=== PATIENT | female | born 2005 | race Caucasian/White ===

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

== ENCOUNTER 2024-07-21 09:02 | Emergency (ER) | payer OTHER, SELFPAY ==
[2024-07-21 09:08] VITALS: BP 120/62; PULSE 63; RESP 18; TEMP 36.3; O2SAT 100
--- NOTE | 2024-07-21 09:19 | ED.FEMALEGU ---
HPI - Female Genitourinary General Chief complaint: Urogenital-Female Stated complaint: uti Time Seen by Provider: 07/21/24 09:14 History of Present Illness HPI Narrative: Patient is a 19-year-old female who presents ER with dysuria. Began this morning around 7:00 a.m.. Associated with urinary frequency and suprapubic pressure /cramping. Has history of UTI. No recent antibiotics. No fevers or chills. Related Data Home Medications Medication Instructions Recorded Confirmed melatonin 1 mg chewable tablet mg PO 06/11/21 norethindrone 1 mg-ethinyl tablet 06/11/21 estradiol 20 mcg (21)-iron 75 mg (7) tablet (Sammie Fe 09/24 ()) potassium citrate 10 mEq (1,080 meq PO 06/11/21 mg) tablet,extended release sertraline 50 mg tablet mg 06/11/21 Allergies Allergy/AdvReac Type Severity Reaction Status Date / Time haloperidol [From Haldol] AdvReac Jittery Verified 07/21/24 09:15 Review of Systems Review of Systems: All systems reviewed & are unremarkable except as noted in HPI and below Constitutional: Constitutional: Reports no additional constitutional complaints Gastrointestinal: Gastrointestinal: Reports no additional gastrointestinal complaints Genitourinary: Genitourinary: Denies abnormal vaginal bleeding, Reports nocturia, Reports dysuria, Denies flank pain and Denies vaginal discharge PMFSH Past Medical History Medical History Anxiety Cystinuria Depression Kyphosis Renal stone Sleeping difficulty Family History Family History Other No acute medical problems Social History Social History (Updated 11/04/23 @ 00:31 by Randi Alexander MD) Smoking status: Never smoker Other substance usage details: Denies marijuana use Living arrangements: with family Occupation/Education: student Additional occupation/education comments: in nursing school Exam Narrative: GENERAL: Well-appearing, well-nourished, and in no acute distress. HEAD: Normocephalic, atraumatic. ENT: Mucous membranes moist. CHEST: Clear to auscultation. No respiratory distress. HEART: Regular rate and rhythm. Normal peripheral pulses. ABDOMEN: Soft, nontender, nondistended, no CVA tenderness. NEURO: Alert and oriented x3. PSYCH: Normal mood and affect. Course Course Emergency Course: Discussed UA. D/c with cephalexin. Vital Signs Vital signs: Vital Signs Temperature 97.4 F L 07/21/24 09:08 Pulse Rate 63 07/21/24 09:08 Respiratory Rate 18 07/21/24 09:08 Blood Pressure 120/62 07/21/24 09:08 Pulse Oximetry 100 07/21/24 09:08 Temperature 97.4 F L 07/21/24 09:08 Pulse Rate 63 07/21/24 09:08 Respiratory Rate 18 07/21/24 09:08 Blood Pressure 120/62 07/21/24 09:08 Pulse Oximetry 100 07/21/24 09:08 MDM - Female Genitourinary Lab Data Labs: Lab Results 07/21/24 Range/Units 09:32 Urine Color Yellow (Yellow) Urine Appearance Clear (Clear) Urine pH 7.5 (5.0-9.0) Ur Specific [place] 1.023 (1.001-1.035) Urine Protein Negative (Negative) mg/dL Urine Glucose (UA) Negative (Negative) mg/dL Urine Ketones Negative (Negative) mg/dL Ur Blood (Man) Negative (Negative) Urine Nitrate Negative (Negative) Urine Bilirubin Negative (Negative) Urine Urobilinogen 1.0 (<2.0) mg/dL Leukocyte Esterase Rfl 1+ H (Negative) DECLAN/UL Urine RBC 0-2 (0-2) /hpf Urine WBC 11-20 H (0-3) /hpf Ur Squamous Epith Cells Few (Few) /hpf Urine Bacteria Rare /hpf Urine Casts 0-2 Discharge Plan Discharge Clinical Impression: Urinary tract infection Patient Disposition: Home, Self-Care Condition: Stable Instructions: Antibiotic Form, Urinary Tract Infection in Women (ED) Additional Instructions: You should return to the emergency department if you develop severe nausea and vomiting and are unable to keep liquids down, if you develop severe back/flank or stomach pain, or if your symptoms are not clearly improving at home. Prescriptions: New cephalexin 500 mg capsule 500 mg PO Q12H Qty: 10 0RF No Action norethindrone-e.estradiol-iron [Sammie Fe 09/24 (28)] 1 mg-20 mcg (21)/75 mg (7) tablet potassium citrate 10 mEq (1,080 mg) tablet extended release PO sertraline 50 mg tablet melatonin 1 mg Tablet,Chewable PO ibuprofen 800 mg tablet 800 mg PO TID PRN (Reason: pain) Qty: 20 0RF amoxicillin-pot clavulanate 875-125 mg tablet 1 tablet PO Q12H 7 Days Qty: 14 0RF sulfamethoxazole-trimethoprim [Bactrim DS] 800-160 mg tablet 1 tablet PO Q12H Qty: 10 0RF famotidine 20 mg tablet 20 mg PO DAILY Qty: 20 0RF ondansetron 4 mg tablet,disintegrating 4 mg PO Q8H PRN (Reason: nausea and vomiting) Qty: 7 0RF Follow-up/Referrals: Hannah,JIMENA Clarke [Primary Care Provider] - 1 Week
[2024-07-21 09:44] LABS: Add Urine Microscopic? YES; Appearance Urine Clear (Clear); Bacteria Urine Rare /hpf; Bilirubin Urine Negative (Negative); Blood Urine Negative (Negative); Color Urine Yellow (Yellow); Glucose Urine UA Negative (Negative); Ketones Urine Negative (Negative); Leukocyte Esterase Ur 1+ LEU/UL (Negative); Nitrate Urine Negative (Negative); Non Pathogenic Casts 0-2; Protein Urine Negative (Negative); RBC Urine 0-2 /hpf (0-2); Specific Grav Ur 1.023 (1.001-1.035); Squamous Epithelial Cell Urine Few /hpf (Few); pH Urine 7.5 (5.0-9.0)
[2024-07-21 10:45] VITALS: BP 120/60; PULSE 78; RESP 16; O2SAT 98
[2024-07-23 10:03] LABS: BEDSIDEPREGUCG Negative (Negative)
== END 2024-07-21 10:50 | disposition home or self-care (01) ==
PROVIDERS: Emergency Provider Emergency Medicine; PCP Physician Assistant
DX: N39.0 Urinary tract infection, site not specified (principal); F41.9 Anxiety disorder, unspecified; F32.A Depression, unspecified; Z87.442 Personal history of urinary calculi; Z79.899 Other long term (current) drug therapy
CPT/HCPCS: 81001; 81025; 87086; 99283

== ENCOUNTER 2024-08-01 05:14 | Emergency (ER) | payer OTHER, SELFPAY ==
--- NOTE | ~2024-08-01 | CT_ITS ---
EXAMINATION: CT abdomen pelvis w con DATE: 08/01/2024 06:46 INDICATION: Abdominal pain. Nausea and vomiting. TECHNIQUE: Computed tomography (CT) of the abdomen and pelvis was performed with 100 mL Omnipaque 350 intravenous contrast. Automated exposure control and iterative reconstruction technique were employe d. The dose-length product was 1213.01 mGy-cm. COMPARISON: Abdomen ultrasound 11/02/2023 FINDINGS: The visualized portions of lung bases are clear without pneumonia or pleural effusion. The heart size is normal. No pericardial effusion. The liver demonstrates focal steatosis adjacent to the ligamentum teres. The gallbladder, spleen, pancreas, adrenal glands, and kidneys are normal. There a re no dilated loops of bowel. The appendix is normal. There is liquid stool in much of the colon sugg esting diarrhea. There are no pathologically enlarged lymph nodes. There is no free intraperitoneal f luid. There are changes of posterior fusion procedure in thoracolumbar spine. There is mild lumbar sp ondylosis. IMPRESSION: 1. No specific etiology for the patient's symptoms. Reviewed, dictated and finalized at location A. [facility]
[2024-08-01 05:25] VITALS: BP 129/81; PULSE 87; RESP 16; TEMP 36.7; O2SAT 97
[2024-08-01 05:35] LABS: Basophils Absolute Auto 0.1 K/mm3 (0.0-0.1); Basophils Percent Auto 0.3 % (0.2-1.2); Eosinophils Percent Auto 0.2 % (0-4.4); Hematocrit 41.9 % (37.0-47.0); Hemoglobin 14.1 g/dL (12.0-15.0); Immature Granulocyte Absolute 0.08 K/mm3 (0.00-0.031); Immature Granulocyte Percent A 0.5 % (0-0.5); Lymphocytes Absolute Auto 0.93 K/mm3 (0.9-3.2); Lymphocytes Percent Auto 5.3 % (18.3-44.2); Mean Corpuscular HGB Conc 33.7 g/dl (32-36); Mean Corpuscular Hemoglobin 29.4 pg (26-34); Mean Corpuscular Volume 87.5 fl (80-100); Mean Platelet Volume 10.6 fl (7.4-10.4); Monocytes Absolute Auto 1.2 K/mm3 (0.1-0.6); Monocytes Percent Auto 6.7 % (2.6-8.5); Neutrophils Absolute Auto 15.3 K/mm3 (1.3-6.7); Platelet Count Result 278 k/mm3 (150-375); Red Blood Count 4.79 M/mm3 (4.2-5.4); Red Cell Distribution Width 12.3 % (11.5-14.5); White Blood Count 17.6 K/mm3 (4.5-10.0)
[2024-08-01 05:47] LABS: Alanine Aminotransferase 39 U/L (6-35); Albumin Level 4.9 g/dL (3.5-5.1); Alkaline Phosphatase 64 U/L (38-126); Anion Gap 11 mmol/L (4-12); Aspartate Amino Transferase 28 U/L (14-36); Bilirubin,Total 0.7 mg/dL (0.2-1.3); Blood Urea Nitrogen 15 mg/dL (7-17); Calcium 9.7 mg/dL (8.4-10.2); Carbon Dioxide 21 mmol/L (22-30); Chloride 107 mmol/L (98-107); Estimated CRCL calculation 150 ml/min; Estimated Glomerular Filt Rate > 60; Glucose 127 mg/dL (65-110); Lipase 59 U/L (23-300); Sodium 139 mmol/L (137-145)
--- NOTE | 2024-08-01 05:50 | ED.GENADULT ---
HPI - General Adult General Chief complaint: Abdominal Pain <Domenic Correa MD - Last Filed: 08/01/24 05:52> Stated complaint: N/V, abd pain <Domenic Correa MD - Last Filed: 08/01/24 05:52> Time Seen by Provider: 08/01/24 05:22 <Domenic Correa MD - Last Filed: 08/01/24 05:52> History of Present Illness HPI narrative: Patient is a 19-year-old female who presents emergency department with chief complaint of abdominal pain and nausea vomiting the patient states for the last 2-3 hour she has had a cramping like pain in her abdomen reports that she had a bowel movement yesterday reports that she has a feeling that she may be constipated patient reports that her last was. Was earlier this month patient reports the pain is in the epigastric and right upper quadrant area <Domenic Correa MD - Last Filed: 08/01/24 05:52> Related Data Home medications: Home Medications Medication Instructions Recorded Confirmed melatonin 1 mg chewable tablet mg PO 06/11/21 norethindrone 1 mg-ethinyl tablet 06/11/21 estradiol 20 mcg (21)-iron 75 mg (7) tablet (Sammie Fe 09/24 ()) potassium citrate 10 mEq (1,080 meq PO 06/11/21 mg) tablet,extended release sertraline 50 mg tablet mg 06/11/21 <Domenic Correa MD - Last Filed: 08/01/24 05:52> Allergies/adverse reactions: Allergies Allergy/AdvReac Type Severity Reaction Status Date / Time haloperidol [From Haldol] AdvReac Jittery Verified 08/01/24 05:14 <Domenic Correa MD - Last Filed: 08/01/24 05:52> Review of Systems Review of Systems: A 10 system review of systems was completed on the patient and is negative except for what is stated in the HPI. Nursing and ancillary documentation was reviewed. <Domenic Correa MD - Last Filed: 08/01/24 05:52> PMFSH Past Medical History Medical History: Medical History Anxiety Cystinuria Depression Kyphosis Renal stone Sleeping difficulty <Domenic Correa MD - Last Filed: 08/01/24 05:52> Family History Family History: Family History Other No acute medical problems <Domenic Correa MD - Last Filed: 08/01/24 05:52> Social History Social History: Social History Smoking status: Never smoker Other substance usage details: Denies marijuana use Living arrangements: with family Occupation/Education: student Additional occupation/education comments: in nursing school <Domenic Correa MD - Last Filed: 08/01/24 05:52> Exam Narrative: GENERAL: Well-appearing, well-nourished, and in moderate acute pain distress. HEAD: Normocephalic, atraumatic. EYES: PERRLA and EOMI. ENT: Nares clear, no rhinorrhea or epistaxis. Mucous membranes moist. NECK: Supple. CHEST: Clear to auscultation. No respiratory distress. HEART: Regular rate and rhythm. No murmur heard. Normal peripheral pulses. ABDOMEN: Soft, tenderness to palpation the epigastric right upper quadrant, nondistended, normal active bowel sounds. EXTREMITIES: Normal range of motion. No edema. SKIN: Warm, dry, no rash. NEURO: No focal deficits. Alert and oriented x3. PSYCH: Normal mood and affect. <Domenic Correa MD - Last Filed: 08/01/24 05:52> Course Course Emergency Course: Zych: patient signed out pending CT. CT showed a large amount of diarrhea in the patient's colon. Patient has started having diarrhea in the emergency department. Presentation most consistent w/ gastroenteritis. Patient discharged as for given return precautions. <Zach Cuevas MD - Last Filed: 08/01/24 08:47> Vital Signs Vital signs: Vital Signs Temperature 98.0 F 08/01/24 05:25 Pulse Rate 87 08/01/24 05:25 Respiratory Rate 16 08/01/24 05:25 Blood Pressure 129/81 08/01/24 05:25 Pulse Oximetry 97 08/01/24 05:25 Oxygen Delivery Room Air 08/01/24 05:25 Temperature 98.0 F 08/01/24 05:25 Pulse Rate 84 08/01/24 06:58 Respiratory Rate 16 08/01/24 06:58 Blood Pressure 127/95 H 08/01/24 06:58 Pulse Oximetry 97 08/01/24 06:58 Oxygen Delivery Room Air 08/01/24 05:25 <Domenic Correa MD - Last Filed: 08/01/24 05:52> Vital Signs Temperature 98.0 F 08/01/24 05:25 Pulse Rate 87 08/01/24 05:25 Respiratory Rate 16 08/01/24 05:25 Blood Pressure 129/81 08/01/24 05:25 Pulse Oximetry 97 08/01/24 05:25 Oxygen Delivery Room Air 08/01/24 05:25 Temperature 98.0 F 08/01/24 05:25 Pulse Rate 84 08/01/24 06:58 Respiratory Rate 16 08/01/24 06:58 Blood Pressure 127/95 H 08/01/24 06:58 Pulse Oximetry 97 08/01/24 06:58 Oxygen Delivery Room Air 08/01/24 05:25 <Zach Cuevas MD - Last Filed: 08/01/24 08:47> Medical Decision Making MDM Narrative Medical decision making narrative: Differential diagnosis includes biliary colic, gastroenteritis, viral illness, colitis, diverticulitis, appendicitis Laboratory studies were obtained on the patient showed a elevated white blood cell count 17.6 electrolytes are within normal limits lipase was normal <Domenic Correa MD - Last Filed: 08/01/24 05:52> Vital Signs Vital Signs: Vital Signs Temperature 98.0 F 08/01/24 05:25 Pulse Rate 87 08/01/24 05:25 Respiratory Rate 16 08/01/24 05:25 Blood Pressure 129/81 08/01/24 05:25 Pulse Oximetry 97 08/01/24 05:25 Oxygen Delivery Room Air 08/01/24 05:25 Temperature 98.0 F 08/01/24 05:25 Pulse Rate 84 08/01/24 06:58 Respiratory Rate 16 08/01/24 06:58 Blood Pressure 127/95 H 08/01/24 06:58 Pulse Oximetry 97 08/01/24 06:58 Oxygen Delivery Room Air 08/01/24 05:25 <Domenic Correa MD - Last Filed: 08/01/24 05:52> Vital Signs Temperature 98.0 F 08/01/24 05:25 Pulse Rate 87 08/01/24 05:25 Respiratory Rate 16 08/01/24 05:25 Blood Pressure 129/81 08/01/24 05:25 Pulse Oximetry 97 08/01/24 05:25 Oxygen Delivery Room Air 08/01/24 05:25 Temperature 98.0 F 08/01/24 05:25 Pulse Rate 84 08/01/24 06:58 Respiratory Rate 16 08/01/24 06:58 Blood Pressure 127/95 H 08/01/24 06:58 Pulse Oximetry 97 08/01/24 06:58 Oxygen Delivery Room Air 08/01/24 05:25 <Zach Cuevas MD - Last Filed: 08/01/24 08:47> Lab Data Result diagrams: 08/01/24 05:29 08/01/24 05:29 <Domenic Correa MD - Last Filed: 08/01/24 05:52> Labs: Lab Results 08/01/24 08/01/24 08/01/24 Range/Units 05:29 05:52 06:27 WBC 17.6 H (4.5-10.0) K/mm3 RBC 4.79 (4.2-5.4) M/mm3 Hgb 14.1 (12.0-15.0) g/dL Hct 41.9 (37.0-47.0) % MCV 87.5 (80-100) fl MCH 29.4 (26-34) pg MCHC 33.7 (32-36) g/dl RDW 12.3 (11.5-14.5) % Plt Count 278 (150-375) k/mm3 MPV 10.6 H (7.4-10.4) fl Immature Gran % (Auto) 0.5 (0-0.5) % Neut % (Auto) 87.0 H (45.5-73.1) % Lymph % (Auto) 5.3 L (18.3-44.2) % [place] % (Auto) 6.7 (2.6-8.5) % Eos % (Auto) 0.2 (0-4.4) % Baso % (Auto) 0.3 (0.2-1.2) % Lymph # (Auto) 0.93 (0.9-3.2) K/mm3 [place] # (Auto) 1.2 H (0.1-0.6) K/mm3 Eos # (Auto) 0.0 (0-0.3) K/mm3 Baso # (Auto) 0.1 (0.0-0.1) K/mm3 Abs Immat Gran (auto) 0.08 H (0.00-0.031) K/mm3 Absolute Neuts (auto) 15.3 H (1.3-6.7) K/mm3 Absolute Nucleated RBC 0.000 (0.0-0.012) K/mm3 Nucleated RBC % 0.0 (0.0-0.2) % Sodium 139 (137-145) mmol/L Potassium 4.0 (3.4-5.0) mmol/L Chloride 107 (98-107) mmol/L Carbon Dioxide 21 L (22-30) mmol/L Anion Gap 11 (4-12) mmol/L BUN 15 D (7-17) mg/dL Creatinine 0.70 (0.7-1.0) mg/dL Estim Creat Clear Calc 150 ml/min Estimated GFR > 60 (59 - ) Glucose 127 H (65-110) mg/dL Calcium 9.7 (8.4-10.2) mg/dL Total Bilirubin 0.7 (0.2-1.3) mg/dL AST 28 (14-36) U/L ALT 39 H (6-35) U/L Alkaline Phosphatase 64 (38-126) U/L Total Protein 8.0 (6.3-8.2) g/dL Albumin 4.9 (3.5-5.1) g/dL Lipase 59 (23-300) U/L Urine Color Dark yellow (Yellow) Urine Appearance Clear (Clear) Urine pH 5.0 (5.0-9.0) Ur Specific [place] 1.035 (1.001-1.035) Urine Protein 1+ H (Negative) mg/dL Urine Glucose (UA) Negative (Negative) mg/dL Urine Ketones Trace H (Negative) mg/dL Ur Blood (Man) Negative (Negative) Urine Nitrate Negative (Negative) Urine Bilirubin 1+ H (Negative) Urine Urobilinogen 0.2 (<2.0) mg/dL Leukocyte Esterase Rfl Negative (Negative) DECLAN/UL Urine RBC 0-2 (0-2) /hpf Urine WBC 0-5 (0-3) /hpf Ur Squamous Epith Cells Few (Few) /hpf Urine Bacteria None seen /hpf Urine Casts 0-2 POC Urine HCG, Qual Negative (Negative) <Domenic Correa MD - Last Filed: 08/01/24 05:52> Lab Results 08/01/24 08/01/24 08/01/24 Range/Units 05:29 05:52 06:27 WBC 17.6 H (4.5-10.0) K/mm3 RBC 4.79 (4.2-5.4) M/mm3 Hgb 14.1 (12.0-15.0) g/dL Hct 41.9 (37.0-47.0) % MCV 87.5 (80-100) fl MCH 29.4 (26-34) pg MCHC 33.7 (32-36) g/dl RDW 12.3 (11.5-14.5) % Plt Count 278 (150-375) k/mm3 MPV 10.6 H (7.4-10.4) fl Immature Gran % (Auto) 0.5 (0-0.5) % Neut % (Auto) 87.0 H (45.5-73.1) % Lymph % (Auto) 5.3 L (18.3-44.2) % [place] % (Auto) 6.7 (2.6-8.5) % Eos % (Auto) 0.2 (0-4.4) % Baso % (Auto) 0.3 (0.2-1.2) % Lymph # (Auto) 0.93 (0.9-3.2) K/mm3 [place] # (Auto) 1.2 H (0.1-0.6) K/mm3 Eos # (Auto) 0.0 (0-0.3) K/mm3 Baso # (Auto) 0.1 (0.0-0.1) K/mm3 Abs Immat Gran (auto) 0.08 H (0.00-0.031) K/mm3 Absolute Neuts (auto) 15.3 H (1.3-6.7) K/mm3 Absolute Nucleated RBC 0.000 (0.0-0.012) K/mm3 Nucleated RBC % 0.0 (0.0-0.2) % Sodium 139 (137-145) mmol/L Potassium 4.0 (3.4-5.0) mmol/L Chloride 107 (98-107) mmol/L Carbon Dioxide 21 L (22-30) mmol/L Anion Gap 11 (4-12) mmol/L BUN 15 D (7-17) mg/dL Creatinine 0.70 (0.7-1.0) mg/dL Estim Creat Clear Calc 150 ml/min Estimated GFR > 60 (59 - ) Glucose 127 H (65-110) mg/dL Calcium 9.7 (8.4-10.2) mg/dL Total Bilirubin 0.7 (0.2-1.3) mg/dL AST 28 (14-36) U/L ALT 39 H (6-35) U/L Alkaline Phosphatase 64 (38-126) U/L Total Protein 8.0 (6.3-8.2) g/dL Albumin 4.9 (3.5-5.1) g/dL Lipase 59 (23-300) U/L Urine Color Dark yellow (Yellow) Urine Appearance Clear (Clear) Urine pH 5.0 (5.0-9.0) Ur Specific [place] 1.035 (1.001-1.035) Urine Protein 1+ H (Negative) mg/dL Urine Glucose (UA) Negative (Negative) mg/dL Urine Ketones Trace H (Negative) mg/dL Ur Blood (Man) Negative (Negative) Urine Nitrate Negative (Negative) Urine Bilirubin 1+ H (Negative) Urine Urobilinogen 0.2 (<2.0) mg/dL Leukocyte Esterase Rfl Negative (Negative) DECLAN/UL Urine RBC 0-2 (0-2) /hpf Urine WBC 0-5 (0-3) /hpf Ur Squamous Epith Cells Few (Few) /hpf Urine Bacteria None seen /hpf Urine Casts 0-2 POC Urine HCG, Qual Negative (Negative) <Zach Cuevas MD - Last Filed: 08/01/24 08:47> Discharge Plan Discharge Clinical Impression: Gastroenteritis <Domenic Correa MD - Last Filed: 08/01/24 05:52> Patient Disposition: Home, Self-Care <Domenic Correa MD - Last Filed: 08/01/24 05:52> Condition: Stable <Domenic Correa MD - Last Filed: 08/01/24 05:52> Instructions: Antibiotic Form, Gastroenteritis (ED) <Domenic Correa MD - Last Filed: 08/01/24 05:52> Additional Instructions: you were seen in the emergency nausea vomiting and diarrhea. Please make sure you are drinking plenty of fluids. Use Zofran nausea. Return if you develop fevers, severe abdominal pain, or intractable nausea and vomiting. <Domenic Correa MD - Last Filed: 08/01/24 05:52> Prescriptions: New ondansetron 4 mg tablet,disintegrating 4 mg PO Q8H PRN (Reason: nausea and vomiting) Qty: 30 0RF No Action norethindrone-e.estradiol-iron [Sammie Fe 09/24 (28)] 1 mg-20 mcg (21)/75 mg (7) tablet potassium citrate 10 mEq (1,080 mg) tablet extended release PO sertraline 50 mg tablet melatonin 1 mg Tablet,Chewable PO ibuprofen 800 mg tablet 800 mg PO TID PRN (Reason: pain) Qty: 20 0RF amoxicillin-pot clavulanate 875-125 mg tablet 1 tablet PO Q12H 7 Days Qty: 14 0RF sulfamethoxazole-trimethoprim [Bactrim DS] 800-160 mg tablet 1 tablet PO Q12H Qty: 10 0RF famotidine 20 mg tablet 20 mg PO DAILY Qty: 20 0RF ondansetron 4 mg tablet,disintegrating 4 mg PO Q8H PRN (Reason: nausea and vomiting) Qty: 7 0RF cephalexin 500 mg capsule 500 mg PO Q12H Qty: 10 0RF <Domenic Correa MD - Last Filed: 08/01/24 05:52> Follow-up/Referrals: Hannah,JIMENA Clarke [Primary Care Provider] - <Domenic Correa MD - Last Filed: 08/01/24 05:52>
[2024-08-01 06:07] LABS: Add Urine Microscopic? YES; Appearance Urine Clear (Clear); Bacteria Urine None Seen /hpf; Bilirubin Urine 1+ (Negative); Blood Urine Negative (Negative); Color Urine Dark Yellow (Yellow); Glucose Urine UA Negative (Negative); Ketones Urine Trace mg/dL (Negative); Leukocyte Esterase Ur Negative LEU/UL (Negative); Nitrate Urine Negative (Negative); Non Pathogenic Casts 0-2; Protein Urine 1+ mg/dL (Negative); RBC Urine 0-2 /hpf (0-2); Specific Grav Ur 1.035 (1.001-1.035); Squamous Epithelial Cell Urine Few /hpf (Few); Urobilinogen Urine 0.2 mg/dL (<2.0); WBC Urine 0-5 /hpf (0-3)
[2024-08-01] MEDS: MORPHINE SULFATE (*CRX) 4 MG/ML INJ IV PUSH (06:11)
[2024-08-01] MEDS: ONDANSETRON INJ 4 MG/2 ML VIAL IV PUSH (06:11)
[2024-08-01] MEDS: SODIUM CHLORIDE 0.9% IV 1,000 ML 999 ML IV CONT (06:11)
[2024-08-01 06:29] LABS: BEDSIDEPREGUCG Negative (Negative)
--- NOTE | 2024-08-01 06:43 | PC.NURSE ---
Pt to CT at this time.
[2024-08-01 06:58] VITALS: BP 127/95; PULSE 84; RESP 16; O2SAT 97
[2024-08-01] MEDS: DICYCLOMINE HCL INJ 20 MG/2 ML VIAL IM (08:51)
[2024-08-01] MEDS: KETOROLAC 15 MG/ML VIAL (*BKC) IV PUSH (08:51)
[2024-08-01 08:52] VITALS: BP 117/68; PULSE 72; RESP 18; O2SAT 96
== END 2024-08-01 09:13 | disposition home or self-care (01) ==
PROVIDERS: Emergency Provider Emergency Medicine; PCP Physician Assistant
DX: K52.9 Noninfective gastroenteritis and colitis, unspecified (principal); F41.9 Anxiety disorder, unspecified; F32.A Depression, unspecified; Z87.442 Personal history of urinary calculi; Z79.899 Other long term (current) drug therapy; Z79.3 Long term (current) use of hormonal contraceptives
CPT/HCPCS: 36415; 74177; 80053; 81001; 81025; 83690; 85025; 96361; 96372; 96374; 96375; 99284; J0500; J1885; J2270; J2405; J7030; Q9967

== ENCOUNTER 2024-12-01 09:56 | Emergency (ER) | payer OTHER, SELFPAY ==
--- NOTE | ~2024-12-01 | CT_ITS ---
EXAMINATION: CT abdomen pelvis wo con DATE: 12/01/2024 11:56 INDICATION: Hematuria. TECHNIQUE: Computed tomography (CT) of the abdomen and pelvis was performed without intravenous contr ast. Automated exposure control and iterative reconstruction technique were employed. The dose-length product was 436.19 mGy-cm. COMPARISON: CT abdomen and pelvis 08/01/2024 FINDINGS: The visualized portions of lung bases are clear without pneumonia or pleural effusion. The heart size is normal. No pericardial effusion. The liver, gallbladder, spleen, pancreas, adrenal glan ds, and kidneys are normal. There is no urolithiasis. There are no dilated loops of bowel. The append ix is normal. There are no pathologically enlarged lymph nodes. There is no free intraperitoneal flui d. There are changes of posterior fusion procedure from the thoracic spine to L3 with pedicle screws and rods. There is mild lumbar spondylosis. IMPRESSION: 1. No urolithiasis. Reviewed, dictated and finalized at location A. IMPRESSION: 1. No urolithiasis.
--- OUTSIDE RECORDS SUMMARY | 2024-12-01 09:58 | XMS_ITS | Clinical Summary ---
Author Organization [facility] Address [address] [place] [address] Phone Care Team Providers Care Direct Marketing Intern Name Role Phone Tricia Tim MD Primary Care Provider + Allergies No known active allergies Medications amitriptyline (ELAVIL) 25 mg tablet TAKE 1 2 (ONE HALF) TABLET BY MOUTH NIGHTLY 02/18/2020 Active norethindrone Ac-Eth estradiol 1-20 mg-mcg tablet Take 1 Tablet by mouth. 06/04/2019 Active polyethylene glycol (MIRALAX) 17 gram Powder in Packet Take 17 Grams by mouth. Active rizatriptan (MAXALT) 5 mg Tablet TAKE ONE TABLET BY MOUTH ONCE NEEDED AT ONSET OF MIGRAINE. IF SYMPTOMS PERSIST A SECOND DOSE MAY BE TAKEN IN 2 HOURS IF UNRESOLVED. DO NO 10/12/2019 Active escitalopram oxalate (LEXAPRO) 10 mg tablet Take 15 mg by mouth daily. Active POTASSIUM CITRATE ORAL Take by mouth. Active Active Problems No known active problems Family History Medical History Relation Name Comments Diabetes Mother Relation Name Status Comments Mother Social History Tobacco Use Types Packs/Day Years Used Date Smoking Tobacco: Never Smokeless Tobacco: Never Adolescent Education Answer Date Record ed Getting School Help Needed Not on file 04/10 Comments No Sex and Gender Information Value Date Recorded Sex Assigned at Not on file Legal Sex Female 9:59 AM CDT Gender Identity Not on file Sexual Orientation Not on file Last Filed Vital Signs Vital Sign Reading Time Taken Comments Blood Pressure 116/76 03/12/2021 3:18 PM CDT Pulse 84 03/17/2020 10:40 AM CDT Temperature 36.3 C (97.3 F) 03/12/2021 3:18 PM CDT Respiratory Rate 20 03/17/2020 12:2 0 PM CDT Oxygen Saturation 99% 03/17/2020 12: 20 PM CDT Inhaled Oxygen Concentration - - Weight 120.6 kg (265 lb 12.8 oz) 03/12/2021 3:18 PM CDT Height 175.3 cm (5' 9 ) 03/12/2021 3:18 PM CDT Body Mass Index 39.25 03/12/2021 3:18 PM CDT Plan of Treatment Health Maintenance Due Date Last Done Comments CHLAMYDIA SCREENING (ANNUAL) 11-24 YEARS 2015 HPV VACCINES (1 - 3-dose series) 2019 DTAP/TDAP/TD VACCINES (1 - Tdap) 2023 HEPATITIS B VACCINES (1 of 3 - 19+ 3-dose series) 2023 INFLUENZA VACCINE (#1) 2024 07/15/2015 PNEUMOCOCCAL VACCINE 0-49 YEARS Aged Out No longer eligible based on patient's age to complete this topic Insurance [place] Care Teams Direct Marketing Intern Relationship Specialty Start Date End Date Tricia Tim MD [address] [place] [id number] PCP - General Pediatrics 02/27/20
--- OUTSIDE RECORDS SUMMARY | 2024-12-01 09:58 | XMS_ITS | Data Portability ---
Author Organization [facility], Main Office Address [address] [place] [address] Assessment Encounter Date Assessment Date Assessment LastModified by Organization Details LastModified Time 06/10/2023 06/10/2023 pt was not seen insurance issue [email or web address] Not available 06/10/2023 16:33:13 Plan of Treatment Reminders Order Date Submit Date Provider Last Modified By Organization Details Last Modified Time Details Appointments None recorded. Lab TSH + free T4, serum 2022 023 [email or web address] Not available 4 12:16:23 beta-HCG, quantitati ve, serum or plasma 2022 023 [email or web address] Not available 4 12:16:23 test, urine 2022 023 [email or web address] [facility] [place], [facility] [address], [place], [address], 3 11:59:04 lipid panel, serum 2022 023 [email or web address] Not available 4 12:16:23 CBC w/ auto diff 2022 023 [email or web address] Not available 4 12:16:23 CMP, serum or plasma 2022 023 [email or web address] Not available 4 12:16:23 HbA1c (hemoglobi n A1c), blood 2022 023 [email or web address] Not available 4 12:16:23 insulin, serum 2022 023 [email or web address] Not available 4 12:16:24 Referral None recorded. Procedures None recorded. Surgeries None recorded. Imaging None recorded. Medication Orders None recorded. Patient TargetsNo targets recorded. Patient InstructionsNo instructions recorded. Reason for Referral None Reported. Results Created Date Observation Date Name Description Value Unit Range Abnormal Flag Note LastModifiedBy Organization Detail LastModifiedTime 07/02/20 23 07/02/2023 pregn julio test, urine HCG negati ve Not Available [facility] [place] [address], [place], [address], 07/02/2023 11:58:47 11/17/19 24 11/08/2023 nerve condu ction study No observ ation record ed. BARCODE Not Available 2023 13:38:33 Result Notes None recorded. Problems Name Problem SNOMED Code Status Onset Date Resolution Date Notes Provider Name and Address Organization Details Recorded Time Mixed anxiety and depressive disorder 708998906 Active 023 JOSE Gil [facility] 3 12:36:13 Amenorrhea 65758193 Active 023 EDELMIRA Brewer [address], [place], [address] [facility] 3 16:29:10 Problem Notes None recorded. Procedures Surgical History Date Name Laterality Status Provider Name and Address Organization Details Recorded Time Spinal Fusion completed JOSE Gil [facility] 07/01/2023 17:04:16 kidney operation completed JOSE Gil [facility] 07/01/2023 17:05:39 Imaging Results Imaging Date Name Status LastModified by Organiz ation Details LastModified Time 11/08/2023 nerve conduction study completed [facility] Information not available 11/17/2023 13:38:33 Procedure Notes None recorded. Medical Equipment None Reported. Allergies No known drug allergies Medications Name Sig Start Date Stop Date Status Note LastModified by Organization Details LastModified Time venlafaxine ER 37.5 mg capsule,exte nded release 24 hr TAKE 1 CAPSULE BY MOUTH ONCE DAILY active Not Available Not Available No t Available sertraline 100 mg tablet TAKE 1 & 1/2 (ONE & ONE-HALF ) TABLETS BY MOUTH ONCE DAILY 07/01 completed Not Available Not Available Not Available amoxicillin 875 mg tablet TAKE 1 TABLET BY MOUTH EVERY 12 HOURS FOR 10 DAYS 05/24 completed Not Available Not Available Not Available potassium citrate ER 10 mEq (1,080 mg) tablet,exten ded release TAKE 2 TABLETS BY MOUTH TWICE DAILY active Not Available Not Available No t Available sertraline 25 mg tablet TAKE 1 TABLET BY MOUTH ONCE DAILY 07/01 completed Not Available Not Available Not Available guanfacine ER 2 mg tablet,exten ded release 24 hr TAKE 1 TABLET BY MOUTH IN THE EVENING active Not Available Not Available No t Available guanfacine ER 1 mg tablet,exten ded release 24 hr TAKE 1 TABLET BY MOUTH NIGHTLY 06/30 completed Not Available Not Available Not Available guanfacine ER 3 mg tablet,exten ded release 24 hr TAKE 1 TABLET BY MOUTH NIGHTLY 07/01 completed Not Available Not Available Not Available Sammie Fe 09/24 (28) 1 mg-20 mcg (21)/75 mg (7) tablet 07/01 completed Not Available Not Available Not Available Nextstellis 3 mg-14.2 mg (28) tablet TAKE 1 TABLET BY MOUTH ONCE DAILY active Not Available Not Available No t Available Vitals Date Recorded Body temperature Body weight Body mass index (BMI) Percentile per age and sex Body mass index (BMI) Body height Respiratory rate Oxygen saturation Oxygen saturation in Arterial blood by Pulse oximetry Heart rate Systolic blood pressure Diastolic blood pressure Provider Name and Address Organization Details Last Updated DateTime 97.7 [degF] 844032. 94 g 98 % 37.7 kg/m2 180.34 cm 16 /min 98 % 98 % 80 /min 122 mm[Hg] 80 mm[Hg] JOSE Gil [place] [facility] 15:52:14 Social History Question Answer Notes LastModified by Organizat ion Details LastModified Time Tobacco Smoking Status Never Smoker JOSE Gil null, MATEO Alexandra [facility] 07/01/2023 15:50:49 Do You Have An Advance Directive? No [email or web address] Information n ot available 06/30/2023 What Is Your Level Of Alcohol Consumption? None [email or web address] Information not available 07/01/2023 What Is Your Level Of Caffeine Consumption? Moderate Information not available 07/01/2023 In The 14 Days Before Symptom Onset, Have You Had Close Contact With A Laboratory-confirm ed COVID-19 While That Case Was Ill? No [email or web address] Information n ot available 05/24/2023 In The 14 Days Before Symptom Onset, Have You Had Close Contact With A Person Who Is Under Investigation For COVID-19 While That Person Was Ill? No [email or web address] Information not available 05/24/2023 Are You Currently Employed? Yes [email or web address] Information not available 07/01/2023 What Type Of Diet Are You Following? 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 No [email or web address] Information no t available 06/30/2023 Are There Any Guns Present In Your Home? No [email or web address] Information not available 07/01/2023 Do You Use Insect Repellent Routinely? No [email or web address] Information not available 06/30/2023 Do You Have A Medical Power Of Quitline Counselor? No [email or web address] Information not available 06/30/2023 What Is Your Relationship Status? Single [email or web address] Information not available 06/30/2023 Do You Use Your Seat Belt Or Car Seat Routinely? Yes [email or web address] Information not available 06/30/2023 Are You Sexually Active? Yes Information not available 07/01/2023 Do You Have Smoke And Carbon Monoxide Detectors In Your Home? Yes [email or web address] Information not available 06/30/2023 Do You Use Sunscreen Routinely? Yes [email or web address] Information not available 06/30/2023 Have You Recently Traveled Abroad? No [email or web address] Information not available 05/24/2023 Do You Have Any Dietary Restrictions? No [email or web address] Information not available 06/30/2023 Do You Or Have You Ever Used Any Other Forms Of Tobacco Or Nicotine? No [email or web address] Information not available 07/01/2023 Sex: Unknown Functional Status Question Answer Note LastModified by Organizat ion Details LastModified Time What is your exercise level? Occasional [email or web address] Information not available 07/01/2023 Mental Status None recorded. Family History Relationship Description Onset Age of this Age Resolved Age Notes LastModified by Organization Details LastModified Time Mother Hyperlipidem ia [email or web address] Not available 07/01 17:03:22 Mother Mixed anxiety and depressive disorder [email or web address] Not available 07/01 17:03:33 Medical History Condition Response ANXIETY DISORDER Y KIDNEY STONES Y URINARY/BLADDER/KIDNEY PROBLEMS Y DEPRESSION (INCLUDING POST ) Y BACK / NECK PROBLEMS Y Gynecological HistoryNo gynecological history recorded. Obstetrics History GPAL:G 0 P 0 0 0 0 Past Encounters Encounter ID Performer Location Encounter Start Date Encounter Closed Date Diagnosis/Indication Diagnosis SNOMED-CT Code Diagnosis ICD10 Code Diagnosis Note [id number] EDELMIRA Brewer [facility] [place] [address] [place] [address] 06/10/2023 14:31:50 06/10/2023 14:36:04 [id number] EDELMIRA Brewer [facility] [place] [address] [place] [address] 07/01/2023 15:45:35 07/01/2023 16:44:44 Adult health examination 024551585 Z00.01 new pt well exam completed Amenorrhea 13335372 N91. 2 dipstick test negative in office today. send also for serum quant hcg Cholesterol screening 27 7217405 Z13.220 fasting lipids ordered for baseline Diabetes m ellitus screening 197377726 Z13.1 screening diabetes a1c ordered Long-term drug therapy 611932078 Z79.899 CBC and CMP ordered Thyroid di sorder screening 057626203 Z13.29 TFT panel for baseline. Mixed anxi ety and depressive disorder 261449973 F41.8 pt is on venlafaxin e ER 37.5mg daily. newer change. has been on several previous SSRI agents. she has been on guanfacine to help with her sleep. Body mass index 30+ - obesity 126449017 Z68.37 fasting insulin ordered for baseline. Health Concerns Section Related Observation LastModified by Organization Detai ls LastModified Time None Recorded Concern Status LastModified by Organization Details LastModified Time None Recorded Advance Directives Directive N: Payers Encounter Date Sequence Insurance Name Policy Number Policy Seals Covered Member ID Seals Member ID Guarantor Name 06/10/2023 1 [employer] [place] ON [place] AFTER 2020 (MEDICAID REPLACEMENT - HMO) Silas Hillman [id number] Radha Hillman 07/01/2023 1 [employer] [place] ([place]ICAID REPLACEMENT - HMO) Silas Sousatiti [id number] Radha Hillman Notes Date Note Type Note Provider Name and Address Organization Details Recorded Time 07/01/2023 text/html Anxiety/Depressi on Reported bypatient.Quality: doesnt matter time of day. Severity:denies suicidal ideations; able to maintain relationships;inte rference with household activities;interfe rence with sleep Duration:symptoms lasting over 2 weeks Onset/Timing:still present Context:major life stressors Associated Symptoms:denies homicidal ideations; no significant weight gain; no significant weight loss; no visual/auditory hallucinations; no delusions; no shortness of breath EDELMIRA Brewer [address], [address], [place] [facility] 07/02/2023 12:01:24 OBGyn Episode No OBEpisode recorded.
--- OUTSIDE RECORDS SUMMARY | 2024-12-01 09:58 | XMS_ITS | Data Portability ---
Author Organization [facility] , [facility] Address [address] [place] [address] Assessment No assessment recorded. Plan of Treatment Reminders Order Date Submit Date Provider Last Modified By Organization Details Last Modified Time Details Appointments None recorded. Lab lh + FSH, serum 2022 023 [facility], [address] [place], [address], 3 11:08:47 hemoglobin A1c, QN, blood 2022 023 ZAYGaudena Mick, [address] [place], [address], 3 10:16:42 prolactin, serum 2022 023 Inaika, [address] [place], [address], 3 11:19:16 testosteron e, free, serum 2022 023 [facility], [address] [place], [address], 3 15:14:12 testosteron e, total, serum 2022 023 [facility], [address] [place], [address], 3 15:14:13 Referral None recorded. Procedures None recorded. Surgeries None recorded. Imaging None recorded. Medication Orders Ortho Tri-Cyclen (28) 0.18 mg(7)/0.215 mg(7)/0.25 mg(7)-0.035 mg tablet 2023 025 ZAY [facility], [address] [place], [address], 5 16:07:04 [employer] 3 mg-14.2 mg (28) tablet 2022 023 [email or web address] 0 [facility], [address] [place], [address], 5 11:51:22 Patient TargetsNo targets recorded. Patient Instructions Encounter Date Encounter Id Patient Instructions Last Modified By Organization Details Last Modified Time 06/28/2024 [id number] learning about dietary guidelines [email or web address] Not available 06/28/2024 14:11:31 eating healthy foods: care instructions [email or web address] Not available 06/28/2024 14:11:31 abuse/domestic violence education [email or web address] Not available 06/28/2024 14:11:31 weight managemen t education [email or web address] Not available 06/28/2024 14:11:31 breast self-exam : care instructions [email or web address] Not available 06/28/2024 14:11:31 Reason for Referral None Reported. Results Created Date Observation Date Name Description Value Unit Range Abnormal Flag Note LastModifiedBy Organization Detail LastModifiedTime 03/06/2003/06/2023 TESTO STERO NE, FREE testosterone , free 5.4 pg/mL 0.2-5. 0 high (Note ) The suhail ntrat ion of free testo stero ne is deriv ed from a anyi mack al model using total testo stero ne by LCMSM S, sex hormo ne marielle ng globu elis and album in. This test was devel oped and its lexie tical perfo rmanc e carrie cteri stics have been deter mined by [facility]. It has not been clear ed or appro macey by the FDA. This assay has been valid ated pursu ant to the CLIA regul ation s and is used for clini valorie purpo ses. MDF med fusio n [address] [facility] [address] [place] [address] [phone] Luis F hartman MD Not Available [facility] [address] [place], [address], 03/06/2023 15:14:12 03/06/20 23 03/06/2023 TESTO STERO NE, TOTAL , MS testosterone , total, MS 30 NG/dL 2-45 For addit ional infor josselyn duke refer to https ://ed ucati on.qu estdi flck.mes. com/f aq/To Cherri burks LCMSM S (This link is being provi ded for infor niles nal/e ducat ional purpo ses only. ) (Note ) This test was devel oped and its lexie tical perfo rmanc e carrie cteri stics have been deter mined by [employer]. It has not been clear ed or appro macey by the FDA. This assay has been valid ated pursu ant to the CLIA regul ation s and is used for clini valorie purpo ses. MDF med fusio n [address] [facility] [address] [place] [address] [phone] Luis F hartman MD NO COLLE CTION DATE RECEI MACEY. WE HAVE USED THE DATE THE SPECI MEN WAS RECEI MACEY BY THIS LABOR ATORY THE COLLE CTION DATE. IF THIS IS INCOR RECT, JOSSELYN E CONTA CT CLIEN T SERVI JUNIE. PHONE NUMBE R: [phone] Not Available [facility] [address] , [place], [address], 03/06/2023 15:14:13 03/03/20 23 03/04/2023 HEMOG LOBIN A1C hemoglobin A1C 5.4 % <5.7 normal The refer ence range for HbA1c is indic ated in the table below . Sugge sted Diagn osis =6.5% Consi stent with diabe mahendra 5.7 6.4% Consi stent with incre ased risk for diabe mahendra (pred iabet ic) <5.7% Consi stent with the absen ce of diabe mahendra Not [place], [address], 03/04/2023 10:16:42 03/03/20 23 03/04/2023 FSH AND LH FSH 4.7 mIU/m L Refer ence Range s are for femal es aged 18 years - Adult Jacklyn l Menst ruati ng Femal e: Folli cular phase : 2.5-1 0.2 mIU/m L Mid-C ycle Peak: 3.4-3 3.4 mIU/m L Lutea l phase : 1.5-9 .1 mIU/m L Pregn ant: <0.3 mIU/m L Post- menop ausal : 23.0- 116.6 mIU/m L [place], [address], 03/04/2023 11:08:47 03/03/20 23 03/04/2023 FSH AND LH LH 7.20 U/L Refer ence Range s are for femal es aged 18 years - Adult Jacklyn l Menst ruati ng Femal e: Folli cular phase : 1.9-1 2.5 mIU/m L Mid-C ycle Peak: 8.7-7 6.3 mIU/m L Lutea l phase : 0.5-1 6.9 mIU/m L Pregn ant: <0.1- 1.5 mIU/m L Post- menop ausal : 15.9- 54.0 mIU/m L Contr acept luis: 0.7-5 .6 mIU/m L [place], [address], 03/04/2023 11:08:47 03/03/20 23 03/04/2023 PROLA CTIN prolactin 13.0 NG/mL Refer ence Range s Femal e aged 18-Ad ult Nonpr egnan t: 2.8-2 9.2 ng/mL Pregn ant: 9.7-2 08.5 ng/mL Post- menop ausal : 1.8-2 0.3 ng/mL Pregn julio, lacta tion, and the admin istra tion of oral contr acept luis can incre ase prola ctin suhail ntrat ions. Not Available [place] [address] [place], [address], 03/04/2023 11:19:16 Result Notes None recorded. Problems No Known Problems Procedures Surgical History Date Name Laterality Status Provider Name and Address Organization Details Recorded Time procedure on back completed [facility] IV 03/03/2023 12:40:19 Imaging Results None recorded. Procedure Notes None recorded. Medical Equipment None Reported. Allergies No known drug allergies Medications Name Sig Start Date Stop Date Status Note LastModified by Organization Details LastModified Time venlafaxine ER 37.5 mg capsule,ext ended release 24 hr TAKE 1 CAPSULE BY MOUTH ONCE DAILY 06/28 completed Not Available Not Available Not Available venlafaxine ER 75 mg capsule,ext ended release 24 hr TAKE 1 CAPSULE BY MOUTH ONCE DAILY active Not Available Not Available No t Available azithromyci n 250 mg tablet 06/28 completed Not Available Not Available Not Available benzonatate 200 mg capsule 06/28 completed Not Available Not Available Not Available prochlorper azine maleate 5 mg tablet TAKE 1 TABLET BY MOUTH EVERY 6 HOURS NEEDED FOR NAUSEA AND VOMITING 06/28 completed Not Available Not Available Not Available famotidine 40 mg tablet TAKE 1 TABLET BY MOUTH ONCE DAILY WITH MEALS 06/28 completed Not Available Not Available Not Available sertraline 100 mg tablet TAKE 1 & 1/2 (ONE & ONE-HALF) TABLETS BY MOUTH ONCE DAILY 06/28 completed Not Available Not Available Not Available sulfamethox azole 800 mg-trimetho prim 160 mg tablet 06/28 completed Not Available Not Available Not Available amoxicillin 875 mg tablet TAKE 1 TABLET BY MOUTH EVERY 12 HOURS FOR 10 DAYS 03/03 completed Not Available Not Available Not Available famotidine 20 mg tablet TAKE 1 TABLET BY MOUTH ONCE DAILY 06/28 completed Not Available Not Available Not Available potassium citrate ER 10 mEq (1,080 mg) tablet,exte nded release TAKE 2 TABLETS BY MOUTH TWICE DAILY active Not Available Not Available No t Available cephalexin 500 mg capsule TAKE 1 CAPSULE BY MOUTH EVERY 12 HOURS 11/02 completed Not Available Not Available Not Available sertraline 25 mg tablet TAKE 1 TABLET BY MOUTH ONCE DAILY 03/03 completed Not Available Not Available Not Available omeprazole 20 mg capsule,del ayed release TAKE 2 CAPSULES BY MOUTH NIGHTLY 06/28 completed Not Available Not Available Not Available ondansetron 4 mg disintegrat ing tablet DISSOLVE 1 TABLET IN MOUTH EVERY 8 HOURS NEEDED FOR NAUSEA AND VOMITING 11/02 completed Not Available Not Available Not Available amoxicillin 875 mg-potassiu m clavulanate 125 mg tablet 06/28 completed Not Available Not Available Not Available Tri-Sprinte c (28) 0.18 mg(7)/0.215 mg(7)/0.25 mg(7)-0.035 mg tablet TAKE 1 TABLET BY MOUTH ONCE DAILY active Not Available Not Available No t Available nitrofurant oin monohydrate /macrocryst als 100 mg capsule 06/28 completed Not Available Not Available Not Available guanfacine ER 2 mg tablet,exte nded release 24 hr TAKE 1 TABLET BY MOUTH ONCE DAILY AT BEDTIME active Not Available Not Available No t Available guanfacine ER 1 mg tablet,exte nded release 24 hr TAKE 1 TABLET BY MOUTH NIGHTLY 03/03 completed Not Available Not Available Not Available guanfacine ER 3 mg tablet,exte nded release 24 hr TAKE 1 TABLET BY MOUTH NIGHTLY 06/28 completed Not Available Not Available Not Available Dificid 200 mg tablet TAKE 1 TABLET BY MOUTH EVERY 12 HOURS FOR 7 DOSES 06/28 completed Not Available Not Available Not Available Enskyce 0.15 mg-0.03 mg tablet TAKE 1 TABLET BY MOUTH ONCE DAILY FOR 90 DAYS active Not Available Not Available No t Available Sammie Fe 09/24 (28) 1 mg-20 mcg (21)/75 mg (7) tablet 03/03 completed Not Available Not Available Not Available [employer]ell[employer] 3 mg-14.2 mg (28) tablet TAKE 1 TABLET BY MOUTH ONCE DAILY 11/02 completed Not Available Not Available Not Available Vitals Date Recorded Body height Body mass index (BMI) Body mass index (BMI) Percentile per age and sex Body weight Systolic blood pressure Diastolic blood pressure Provider Name and Address Organization Details Last Updated DateTime 3 177.8 cm 37.3 kg/m2 98 % 313616. 02 g 112 mm[Hg] 70 mm[Hg] Raya Jolley [email or web address] 3 12:38:04 Date Recorded Body weight Body mass index (BMI) Percentile per age and sex Body mass index (BMI) Body height Systolic blood pressure Diastolic blood pressure Provider Name and Address Organization Details Last Updated DateTime 4 661966. 21 g 95.54 % 32.8 kg/m2 180.34 cm 122 mm[Hg] 80 mm[Hg] Raya Jolley [facility] 4 13:55:21 Social History Question Answer Notes LastModified by Organizat ion Details LastModified Time Tobacco Smoking Status Never Smoker Raya Jolley [facility] IV 03/03/2023 12:31:26 What Is Your Level Of Alcohol Consumption? None [email or web address] Information not available 03/03/2023 Are You Blind Or Do You Have Difficulty Seeing? No [email or web address] Information not available 06/28/2024 Are You Currently Employed? Yes [email or web address] Information not available 06/28/2024 Are You Deaf Or Do You Have Serious Difficulty Hearing? No [email or web address] Information not available 06/28/2024 What Type Of Diet Are You Following? CARBOHYDRATE Information not available 03/03/2023 Do You Or Have You Ever Used E-cigarettes Or Vape? Never Used Electronic Cigarettes [email or web address] Information not available 03/03/2023 How Many Children Do You Have? 0 [email or web address] Information not available 03/03/2023 Are There Any Occupational Health Risks Where You Work? Any Communicable Diseases [email or web address] Information not available 06/28/2024 What Is Your Relationship Status? Single [email or web address] Information not available 03/03/2023 Are You Sexually Active? No [email or web address] Information not available 03/03/2023 Sex: Unknown Functional Status Question Answer Note LastModified by Organization D etails LastModified Time What is your exercise level? Moderate Information not available 03/03/2023 Mental Status None recorded. Family History Relationship Description Onset Age of this Age Resolved Age Notes LastModified by Organization Details LastModified Time Mother Hypercholest erolemia [email or web address] Not available 03/03 12:31:58 Mother Depressive disorder [email or web address] Not available 03/03 12:31:14 Mother Diabetes mellitus [email or web address] Not available 03/03 12:31:14 Maternal Grandmother Myocardial infarction [email or web address] Not available 02/04 12:31:14 Maternal Grandmother Cerebrovascu lar accident Not available 12:31:14 Maternal Grandmother Malignant neoplasm of uterus [email or web address] Not available 03/03 12:31:14 Maternal Grandmother Hypertensive disorder Not available 03/03 12:31:14 Maternal Grandmother Hypothyroidi sm [email or web address] Not available 03/03 12:31:14 Maternal Grandmother Heart disease [email or web address] Not available 03/03 12:31:14 Maternal Grandmother Diabetes mellitus [email or web address] Not available 03/03 12:31:14 Maternal Grandfather Diabetes mellitus [email or web address] Not available 03/03 12:31:14 Medical History Condition Response Other Cancer N High Blood Pressure N Colon Cancer N Cytomegalovirus N Hyperthyroidism N MRSA N Breast Cancer N Herpes (HSV) N Blood Transfusion N Lung Cancer N Depression Y Hypothyroidism N Incontinence N Panic Attacks N Neurological Disorder N Deep Vein Thrombosis N Anxiety Disorder Y Autoimmune disease N Arthritis N Tuberculosis/Positive PPD N Shingles N Polycystic Ovarian Syndrome N Cervical Cancer N Hematuria N Chlamydia N Stroke N Varicosities N Seasonal allergies N Crohn's Disease N Alzheimer's/Dementia N COPD/Emphysema N Endometriosis N HPV/Genital Warts N IBS (Irritable Bowel Syndrome) N History of Abnormal Pap N High Cholesterol N Liver Disease N Kidney Infection N Fibromyalgia N Ulcer N Kidney Disease N HIV N Gallbladder disease N Sickle Cell Disease/Trait N Von Willebrand disease N ADD/ADHD N Eating Disorder N Anemia N Diabetes Mellitus (non-insulin dependent ) N Multiple Sclerosis N Ovarian Problems N Gonorrhea N Frequent Urinary Tract infections N Osteopenia N Headaches/migraines N GERD (reflux) N Ovarian Cancer N Diabetes (insulin dependent) N Seizures/Epilepsy N Fibroids N Asthma N Heart Attack N Lupus N Endometrial Cancer N Rubella N Blood Clotting Disorder N Bipolar Disorder N Diabetes Mellitus (during ) N Ulcerative Colitis N Hepatitis N Heart Disease N Pulmonary Embolism N RPR N Chicken Pox N Osteoporosis N Gynecological History Statement/Question Response Flow Heavy Date of LMP 06/12/2024 Frequency of Cycle (Q days) 28 Date of Last Pap Smear Duration of Flow (days) 4 Current Control Method BCPs Age at Menarche 9 Obstetrics History GPAL:G 0 P 0 0 0 0 Past Encounters Encounter ID Performer Location Encounter Start Date Encounter Closed Date Diagnosis/Indication Diagnosis SNOMED-CT Code Diagnosis ICD10 Code Diagnosis Note [id number] [facility] [address] [place] [address] 03/03/2023 12:26:18 03/03/2023 12:55:47 Contraception care management 232188744 Z30.9 Contracept jeffrey counseling : Discussed options including OCPs, NuvaRing, Nexplanon, hormonal and copper IUDs. Discussed risks, efficacy, noncontrac eptive benefits, and side effects of each option, including risk of VTE with hormonal contracept ion and uterine perforatio n, expulsion, infection with IUD. She is most interested in OCP's. Pt educated on risks Vs benefits of use, and reviewed ACHES symptoms. Importance of daily administra tion within the same 30 minute time frame reinforced to pt, and on use of condoms or abstinence if dosing schedule is interrupte d. Refills sent. Plan to F/U PRN or at next [facility]. Irregular periods 234384 07 N92.6 Today we discussed possibilit y of PCOS and its physiology . We discussed the hormonal implicatio ns as well as the physical findings that come with this diagnosis. I have strongly recommende d weight control through maintainin g a healthy diet and regular exercise both cardiovasc ular and muscle building. We have discussed treatments for symptoms as well as the importance of cycle control to avoid endometria l hyperplasi a and malignancy . because the patient's goal is to prevent at this time, we discussed the various hormonal contracept jeffrey options for endometria l protection . Obesity 819331056 E66.9 Family his tory of diabetes mellitus 020072524 Z83.3 HgA1c today [id number] Samantha SchwabALEXA [facility] [address] [place] [address] 06/28/2024 13:52:16 06/28/2024 14:15:59 Gynecologic examination 38116073 Z01.419 18y.o. here for annual exam. - Pap age 20 - RTO PRN or annual Depression screening 171 917477 Z13.31 see intake screening toolCurren tly on medication Declines interventi on Contracept ion care management 210004336 Z30.9 Examination of breast 46 092848 Z12.39 Client advised to perform self-breas t exams and report any changes. Menorrhagia 984604229 N9 2.0 Will switch OCP's to see if this alleviates her sx Dysmenorrhea 833533000 N 94.6 Health Concerns Section Related Observation LastModified by Organization Detai ls LastModified Time None Recorded Concern Status LastModified by Organization Details LastModified Time None Recorded Advance Directives Directive None Recorded Payers Encounter Date Sequence Insurance Name Policy Number Policy Seals Covered Member ID Seals Member ID Guarantor Name 03/03/2023 1 [employer] [place] ON [place] AFTER 2020 (MEDICAID REPLACEMENT - HMO) Radha Rafy [id number] Dana Justice 06/28/2024 1 [employer] [place] ([place]ICAID REPLACEMENT - HMO) Radha Rafy [id number] Dana Justice Notes Date Note Type Note Provider Name and Address Organization Details Recorded Time 03/03/2023 text/html Annual GYNReport ed bypatient.Menstrual cycle:Irregular cycle intervals Urinary symptoms:No hematuria; No incontinence Vulva:No genital lesion Vagina:Normal vaginal discharge Breast:No breast pain; No breast lump; No nipple discharge Sexual complaints:No sexual complaints; No pain during intercourse; Normal libido Menopausal Symptoms:No menopausal symptoms; Normal vaginal lubrication Psychological symptoms:No depression; No anxiety; No PMDD Radha is here for control discussionShe has never been sexually activeHer menses are irregularShe is obeseShe has a family hx of DM ALEXA Mendoza [address], [place], [address], [facility] IV 03/03/2023 12:55:41 06/28/2024 text/html Annual GYNReport ed bypatient.Menstrual cycle:Severe dysmenorrhea;Menorrha fransisca Urinary symptoms:No hematuria; No incontinence Vulva:No genital lesion Vagina:Normal vaginal discharge Breast:No breast pain; No breast lump; No nipple discharge Sexual complaints:No sexual complaints; No pain during intercourse; Normal libido Menopausal Symptoms:No menopausal symptoms; Normal vaginal lubrication Psychological symptoms:No depression; No anxiety; No PMDD Radha is here for AEXShe has never been sexually activeHer LMP was 06/14/2024She is obeseShe had elevated testosterone level 03/06/23, otherwise normal irregular menses labsShe was started on an OCP. For the past few months she has been experiencing heavier cycles with dysmenorrheaShe has a family hx of DIMA Schwab, ALEXA [address], [place], [address], [facility] IV 06/28/2024 14:13:56 OBGyn Episode No OBEpisode recorded.
--- OUTSIDE RECORDS SUMMARY | 2024-12-01 09:58 | XMS_ITS | Data Portability ---
Author Organization MAXINE SAMUELCassy Knutson Address [address] [facility] [place] [address] Care Team Providers Care Needle Leader Name Role Phone TRICIA JO Primary Care Provider Unavailab le Assessment No assessment recorded. Plan of Treatment Reminders Order Date Submit Date Provider Last Modified By Organization Details Last Modified Time Details Appointments ANY 15 2024 03:00P M EDELMIRA Brewer Not available Not available Not available Lab PPD (purified protein derivativ e), skin test 2023 024 [email or web address] In-Office Order, Internal Use Only DO Not Attach Compendium DO Not Attach Compendium, Do Not Delete/merge, [id number] 04/12/2024 13:22:13 PPD (purified protein derivativ e), skin test 2023 024 [email or web address] In-Office Order, Internal Use Only DO Not Attach Compendium DO Not Attach Compendium, Do Not Delete/merge, [id number] 03/28/2024 10:56:30 TSH + free T4, serum 2023 024 ZAY [facility], [address], [place], [address], 03/19/2024 10:28:32 lipid panel, serum 2023 024 [email or web address] [facility], [address], [place], [address], 04/03/2024 09:46:53 CMP, serum or plasma 2023 024 [email or web address] [facility], [address], [place], [address], 04/03/2024 09:46:53 CBC w/ auto diff 2023 024 [email or web address] [facility], [address] , [place], [address], 04/03/2024 09:46:53 HbA1c (hemoglob in A1c), blood 2023 024 [email or web address] [facility], [address] , [place], [address], 04/03/2024 09:46:54 insulin, serum 2023 024 [email or web address] [facility], [address], [place], [address], 04/03/2024 09:46:54 CMP, serum or plasma 2023 024 ZAY [facility], [address], [place], [address], 11/28/2023 09:29:11 Referral psychiatr ist referral 2023 024 [email or web address] Kendrick Mcfarland MD, [address], [facility] [address] [place], [address], 02/17/2024 08:00:47 Procedures None recorded. Surgeries None recorded. Imaging None recorded. Medication Orders Tubersol 5 tub. unit/0.1 mL intraderm al injection solution 2023 024 Not available 08/01/2024 14:21:41 Tubersol 5 tub. unit/0.1 mL intraderm al injection solution 2023 024 Not available 08/01/2024 14:21:41 potassium citrate ER 10 mEq (1,080 mg) tablet,ex tended release 2023 024 [email or web address] [facility], [address], [place], [address], 11/27/2023 16:51:22 guanfacin e ER 2 mg tablet,ex tended release 24 hr 2023 024 [email or web address], [address], [place], [address], 11/29/2023 21:28:36 Patient TargetsNo targets recorded. 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 Referring Physician: Tricia Jo, Internal Medicine, Encounter Date: 11/25/2023 Results Created Date Observation Date Name Description Value Unit Range Abnormal Flag Note LastModifiedBy Organization Detail LastModifiedTime 03/22/20 24 03/22/2024 PPD (catarino fied prote in deriv ative ), skin test Result Negati ve Not Available In-Office Order Internal Use Only DO Not Attach Compendium DO Not Attach Compendium, Do Not Delete/merge, [id number] 03/20/2024 12:09:40 03/30/20 24 03/30/2024 PPD (catarino fied prote in deriv ative ), skin test Result Negati ve Not Available In-Office Order Internal Use Only DO Not Attach Compendium DO Not Attach Compendium, Do Not Delete/merge, [id number] 03/28/2024 10:09:31 11/11/19 24 11/09/2023 RF, upper gastr ointe donna l tract + small bowel , w/ contr ast PO No observ ation [email or web address] [address] [place], [address], 11/13/2023 13:30:52 11/11/19 24 11/09/2023 RF, upper gastr ointe donna l tract + small bowel , w/ contr ast PO No observ ation record ed. [facility]5 [facility] [address] [place], [address], 11/13/2023 13:30:53 08/01/20 24 08/01/2024 CT, abdom en + pelvi s, w/ contr ast No observ ation record ed. [email or web address] [facility] [address], [place], [address], 08/01/2024 14:26:12 Result Notes None recorded. Problems Name Problem SNOMED Code Status Onset Date Resolution Date Notes Provider Name and Address Organization Details Recorded Time Long-term drug therapy Active 2023 EDELMIRA Brewer Attn: Aneta sommer,[address] [facility], [place], [address], [place] [facility] 4 12:30:17 Insomnia 687486322 Active 2023 EDELMIRA Brewer Attn: Aneta sommer,[address] [facility], [place], [address], [place] [facility] 4 12:30:18 Mixed anxiety and depressive disorder 505616861 Active 2023 EDELMIRA Brewer Attn: Aneta sommre,[address] [place], [address], [place] [facility] 4 12:30:19 Body mass index 30+ - obesity 130698195 Active 2023 EDELMIRA Brewer Attn: Aneta sommer,[address] [facility], [place], [address], [place] [facility] 4 14:35:22 Gastroesophage al reflux disease without esophagitis 059369992 Active 2023 EDELMIRA Brewer Attn: Aneta g,[address] [facility], [place], [address], [place] [facility] 4 14:41:41 Obesity 894407981 Active 2023 EDELMIRA Brewer Attn: Aneta g,[address] [facility], [place], [address], [place] [facility] 4 14:41:50 Problem Notes None recorded. Procedures Surgical History Date Name Laterality Status Provider Name and Address Organization Details Recorded Time spinal fusion for kyphosis completed Grupo Chavez [place] [facility] 11/01/2023 17:05:58 Imaging Results Imaging Date Name Status LastModified by Organization Details LastModified Time 11/09/2023 RF, upper gastrointestinal tract + small bowel, w/ contrast PO completed [address] [place], [address], 11/13/2023 13:30:52 11/09/2023 RF, upper gastrointestinal tract + small bowel, w/ contrast PO completed [address] [place], [address], 11/13/2023 13:30:53 08/01/2024 CT, abdomen + pelvis, w/ contrast completed [address], [address], 08/01/2024 14:26:12 Procedure Notes None recorded. Medical Equipment None Reported. Allergies No known drug allergies Medications Name Sig Start Date Stop Date Status Note LastModified by Organization Details LastModified Time venlafaxine ER 37.5 mg capsule,ext ended release 24 hr TAKE 1 CAPSULE BY MOUTH ONCE DAILY 11/01 completed Not Available Not Available Not Available venlafaxine ER 75 mg capsule,ext ended release 24 hr Take 1 capsule by mouth once daily active Not Available Not Available No t Available azithromyci n 250 mg tablet TAKE 2 TABLETS BY MOUTH ON DAY 1, AND THEN TAKE 1 TABLET BY MOUTH ONCE A DAY ON DAY 2 THROUGH DAY 5 03/13 completed Not Available Not Available Not Available benzonatate 200 mg capsule TAKE 1 CAPSULE BY MOUTH THREE TIMES DAILY NEEDED 03/13 completed Not Available Not Available Not Available prochlorper azine maleate 5 mg tablet TAKE 1 TABLET BY MOUTH EVERY 6 HOURS NEEDED FOR NAUSEA AND VOMITING 11/24 completed Not Available Not Available Not Available famotidine 40 mg tablet TAKE 1 TABLET BY MOUTH ONCE DAILY WITH MEALS 11/24 completed Not Available Not Available Not Available Tubersol 5 tub. unit/0.1 mL intradermal injection solution Administe r .1ml interderm ally 08/01 completed Not Available Not Available Not Available sertraline 100 mg tablet TAKE 1 & 1/2 (ONE & ONE-HALF) TABLETS BY MOUTH ONCE DAILY 11/01 completed Not Available Not Available Not Available sulfamethox azole 800 mg-trimetho prim 160 mg tablet TAKE 1 TABLET BY MOUTH EVERY 12 HOURS 11/24 completed Not Available Not Available Not Available amoxicillin 875 mg tablet TAKE 1 TABLET BY MOUTH EVERY 12 HOURS FOR 10 DAYS 11/01 completed Not Available Not Available Not Available famotidine 20 mg tablet TAKE 1 TABLET BY MOUTH ONCE DAILY 11/24 completed Not Available Not Available Not Available potassium citrate ER 10 mEq (1,080 mg) tablet,exte nded release TAKE 2 TABLETS BY MOUTH TWICE DAILY active Not Available Not Available No t Available cephalexin 500 mg capsule TAKE 1 CAPSULE BY MOUTH EVERY 12 HOURS 08/01 completed Not Available Not Available Not Available sertraline 25 mg tablet TAKE 1 TABLET BY MOUTH ONCE DAILY 11/01 completed Not Available Not Available Not Available omeprazole 20 mg capsule,del ayed release TAKE 2 CAPSULES BY MOUTH NIGHTLY prn 08/01 completed Not Available Not Available Not Available ondansetron 4 mg disintegrat ing tablet Place 1 tablet every 6 hours by transling ual route as needed. active Not Available Not Available No t Available amoxicillin 875 mg-potassiu m clavulanate 125 mg tablet TAKE 1 TABLET BY MOUTH EVERY 12 HOURS FOR 7 DAYS 11/01 completed Not Available Not Available Not Available Tri-Sprinte c (28) 0.18 mg(7)/0.215 mg(7)/0.25 mg(7)-0.035 mg tablet TAKE 1 TABLET BY MOUTH ONCE DAILY active Not Available Not Available No t Available nitrofurant oin monohydrate /macrocryst als 100 mg capsule TAKE 1 CAPSULE BY MOUTH EVERY 12 HOURS 03/13 completed Not Available Not Available Not Available guanfacine ER 2 mg tablet,exte nded release 24 hr TAKE 1 TABLET BY MOUTH ONCE DAILY AT BEDTIME 2024 active Not Available Not Available Not Avai lable guanfacine ER 3 mg tablet,exte nded release 24 hr TAKE 1 TABLET BY MOUTH NIGHTLY 11/01 completed Not Available Not Available Not Available Dificid 200 mg tablet TAKE 1 TABLET BY MOUTH EVERY 12 HOURS FOR 7 DOSES 11/24 completed Not Available Not Available Not Available Nextstellis 3 mg-14.2 mg (28) tablet Take by oral route for 84 days. 08/01 completed Not Available Not Available Not Available Vitals Date Recorded Body height Body mass index (BMI) Percentile per age and sex Body mass index (BMI) Body weight Respiratory rate Heart rate Oxygen saturation Oxygen saturation in Arterial blood by Pulse oximetry Systolic blood pressure Diastolic blood pressure Provider Name and Address Organization Details Last Updated DateTime 4 180.34 cm 97.02 % 35.3 kg/m2 400714. 87 g 18 /min 87 /min 96 % 96 % 118 mm[Hg] 88 mm[Hg] Grupo Chavez MA [facility] 4 16:04:53 Date Recorded Systolic blood pressure Diastolic blood pressure Provider Name and Address Organization Details Last Updated DateTime 11/25/2023 108 mm[Hg] 80 mm[Hg] EDELMIRA Brewer Attn: Accounting,[address] [place], [address], [facility] 11/25/2023 16:26:40 Date Recorded Body height Respiratory rate Body mass index (BMI) Body mass index (BMI) Percentile per age and sex Body weight Oxygen saturation Oxygen saturation in Arterial blood by Pulse oximetry Heart rate Systolic blood pressure Diastolic blood pressure Provider Name and Address Organization Details Last Updated DateTime 4 180.34 cm 18 /min 33.6 kg/m2 96.06 % 823405. 05 g 98 % 98 % 66 /min 126 mm[Hg] 86 mm[Hg] Grupo Chavez MA [facility] 4 12:13:19 Date Recorded Systolic blood pressure Diastolic blood pressure Provider Name and Address Organization Details Last Updated DateTime 03/13/2024 110 mm[Hg] 80 mm[Hg] EDELMIRA Brewer Attn: Accounting[address] [place], [address], [facility] 03/13/2024 12:31:22 Date Recorded Body height Body mass index (BMI) Body mass index (BMI) Percentile per age and sex Body weight Respiratory rate Oxygen saturation Oxygen saturation in Arterial blood by Pulse oximetry Heart rate Systolic blood pressure Diastolic blood pressure Provider Name and Address Organization Details Last Updated DateTime 180.34 cm 32.2 kg/m2 95 % 988031. 84 g 18 /min 99 % 99 % 113 /min 128 mm[Hg] 82 mm[Hg] Grupo Chavez MA [facility] 14:09:00 Date Recorded Body temperature Provider Name a ar Address Organization Details Last Updated DateTime 08/01/2024 99.5 [degF] EDELMIRA Brewer Attn: Accounting,[address] [place], [address], [facility] 08/01/2024 14:24:44 Social History Question Answer Notes LastModified by Organizat ion Details LastModified Time Tobacco Smoking Status Former Smoker Grupo Chavez MA null, [facility] 11/01/2023 17:05:24 What Is Your Level Of Alcohol Consumption? None Information not available 11/01/2023 Are You Blind Or Do You Have Difficulty Seeing? No Glasses Information not available 11/25/2023 What Is Your Level Of Caffeine Consumption? Occasional Information not available 11/01/2023 In The 14 Days Before Symptom Onset, Have You Had Close Contact With A Laboratory-confir med COVID-19 While That Case Was Ill? No Information not available 11/01/2023 In The 14 Days Before Symptom Onset, Have You Had Close Contact With A Person Who Is Under Investigation For COVID-19 While That Person Was Ill? No Information not available 11/01/2023 Have You Been To An Area Known To Be High Risk For COVID-19? No Information not available 11/01/2023 Are You Deaf Or Do You Have Serious Difficulty Hearing? No Information not available 11/25/2023 What Type Of Diet Are You Following? REGULAR Information not available 11/25/2023 Are There Any Guns Present In Your Home? No Information not available 11/01/2023 What Was The Date Of Your Most Recent Tobacco Screening? 08/01/2024 Information not available 08/01/2024 What Is Your Current Pack Years? 10-19packyears Information not available 08/01/2024 What Is Your Relationship Status? Single Information not available 11/01/2023 Do You Use Your Seat Belt Or Car Seat Routinely? Yes Information not available 11/01/2023 Do You Have Smoke And Carbon Monoxide Detectors In Your Home? Yes Information not available 11/01/2023 How Much Tobacco Do You Smoke? No Information not available 08/01/2024 Do You Use Any Illicit Or Recreational Drugs? No Information not available 03/13/2024 Do You Use Sunscreen Routinely? Yes Information not available 11/01/2023 Has Tobacco Cessation Counseling Been Provided? Yes Information not available 11/01/2023 On What Date Was Tobacco Cessation Counseling Provided? 08/01/2024 Information not available 08/01/2024 Do You Or Have You Ever Used Any Other Forms Of Tobacco Or Nicotine? No Information not available 08/01/2024 Sex: Female Functional Status Question Answer Note LastModified by Organization D etails LastModified Time Are you able to care for yourself? Yes Information n ot available 11/25/2023 What is your exercise level? None Information not available 11/25/2023 Mental Status None recorded. Family History Relationship Description Onset Age of this Age Resolved Age Notes LastModified by Organization Details LastModified Time Mother Depressive disorder [email or web address] Not available 2023 17:03:26 Notes:pre diabetic- Mother Medical History Condition Response Coronary Artery Disease N High Blood Pressure N Atrial Fibrillation N Kidney or Bladder Problems Y Thyroid Problems N Depression Y COPD N Blood Clots N GI Problems N Skin Problems N Anemia N Heart Attack (NH) N Anxiety Disorder Y Diabetes N Muscle, Joint, or Bone Problems N Seizures/Epilepsy N Cancer N Stroke N Asthma N Allergies N Hepatitis N Liver Disease N Headaches N Heart Failure N Osteoporosis N Gynecological History Statement/Question Response Flow Moderate Date of LMP 06/06/2024 Menses Monthly Y Duration of Flow (days) 7 Current Control Method BCPs LMP Approximate Obstetrics History GPAL:G 0 P 0 0 0 0 Immunizations Vaccine Type Date Status Note Provider Nam e and Address Organization Details Recorded Time Hib, unspecified formulation 5 completed Tony Cisneros [place], [place] [facility] 03/28/2024 10:17:06 Hib, unspecified formulation 6 completed [place] Cisneros [place] [facility] 03/28/2024 10:17:06 Hib, unspecified formulation 5 completed [place] Cisner[place] [facility] 03/28/2024 10:17:06 Hib, unspecified formulation 5 completed [place] Cisner[place] [facility] 03/28/2024 10:17:06 HPV9 6 completed [place] Cisner[place] [facility] 03/28/2024 10:17:06 HPV9 6 completed [place] Cisner[place] [facility] 03/28/2024 10:17:06 HPV9 7 completed [place] Cis[place] [facility] 03/28/2024 10:17:06 HPV9 6 completed [place] Cis[place] [facility] 03/28/2024 10:17:06 IPV 0 completed [place] [facility] 03/28/2024 10:17:06 IPV 5 completed [place] C[place]ner[place] [facility] 03/28/2024 10:17:06 IPV 5 completed [place] Cis[place] [facility] 03/28/2024 10:17:06 Influenza, live, trivalent, intranasal 2 completed [place] C[place] [facility] 03/28/2024 10:17:06 Influenza, live, trivalent, intranasal 3 completed [place] C[place] [facility] 03/28/2024 10:17:06 MMR 0 completed [place] C[place] [facility] 03/28/2024 10:17:06 MMR 5 completed [place] [facility] 03/28/2024 10:17:06 COVID-19, mRNA, LNP-S, PF, 30 mcg/0.3 mL dose 1 [place] BERNABE [place] [facility] 03/28/2024 10:17:06 COVID-19, mRNA, LNP-S, PF, 30 mcg/0.3 mL dose 1 [place] [facility] 03/28/2024 10:17:06 COVID-19, mRNA, LNP-S, PF, 30 mcg/0.3 mL dose, ervin-sucrose 2 [place] [facility] 03/28/2024 10:17:06 COVID-19, mRNA, LNP-S, bivalent, PF, 30 mcg/0.3 mL dose 2 [place] [facility] 03/28/2024 10:17:06 pneumococcal conjugate PCV 7 5 [place] [facility] 03/28/2024 10:17:06 pneumococcal conjugate PCV 7 5 [place] [facility] 03/28/2024 10:17:06 pneumococcal conjugate PCV 7 5 [place] [facility] 03/28/2024 10:17:06 pneumococcal conjugate PCV 7 5 [place] [facility] 03/28/2024 10:17:06 influenza, unspecified formulation 5 completed [place] [facility] 03/28/2024 10:17:06 influenza, unspecified formulation 5 completed [place] [facility] 03/28/2024 10:17:06 Tdap 6 [place] [facility] 03/28/2024 10:17:06 Tdap 7 [place] [facility] 03/28/2024 10:17:06 varicella 0 [place] [facility] 03/28/2024 10:17:06 varicella 6 [place] [facility] 03/28/2024 10:17:06 Influenza, split virus, trivalent, preservative 1 [place] [facility] 03/28/2024 10:17:06 Influenza, split virus, trivalent, preservative 7 [place] [facility] 03/28/2024 10:17:06 Influenza, split virus, trivalent, preservative 6 [place] [facility] 03/28/2024 10:17:06 influenza, split (incl. purified surface antigen) 0 [place] [facility] 03/28/2024 10:17:06 influenza, split (incl. purified surface antigen) 8 [place] [facility] 03/28/2024 10:17:06 Novel [id number] 0 [place] [facility] 03/28/2024 10:17:06 Hep B, adolescent or pediatric 5 completed [place] [facility] 03/28/2024 10:17:06 Hep B, adult 3 completed [place] [facility] 03/28/2024 10:17:06 Hep A, pediatric, unspecified formulation 8 completed [place] [facility] 03/28/2024 10:17:06 Hep A, pediatric, unspecified formulation 7 completed [place] [facility] 03/28/2024 10:17:06 meningococcal MCV4P 1 completed [place] Cisner[place] [facility] 03/28/2024 10:17:06 meningococcal MCV4P 6 completed [place] C[place] [facility] 03/28/2024 10:17:06 DTaP 0 completed [place] [facility] 03/28/2024 10:17:06 DTaP 6 completed [place] C[place] [facility] 03/28/2024 10:17:06 DTaP 5 completed [place] C[place] [facility] 03/28/2024 10:17:06 meningococcal MCV4, unspecified formulation 7 completed [place] C[place] [facility] 03/28/2024 10:17:06 DTaP-Hep B-IPV 5 completed [place] C[place] [facility] 03/28/2024 10:17:06 DTaP-Hep B-IPV 5 completed [place] [facility] 03/28/2024 10:17:07 DTaP-Hep B-IPV 5 completed [place] C[place] [facility] 03/28/2024 10:17:07 Influenza, live, quadrivalent, intranasal 4 completed [place] C[place] [facility] 03/28/2024 10:17:07 Influenza, split virus, quadrivalent, PF 2 completed [place] C[place] [facility] 03/28/2024 10:17:07 Influenza, split virus, quadrivalent, PF 2 completed [place] C[place] [facility] 03/28/2024 10:17:07 Influenza, split virus, quadrivalent, PF 8 completed [place] C[place] [facility] 03/28/2024 10:17:07 Influenza, split virus, quadrivalent, PF 6 completed BERNABE Moreno, [facility] 03/28/2024 10:17:07 Influenza, split virus, quadrivalent, PF 5 completed BERNABE Moreno, [facility] 03/28/2024 10:17:07 Influenza, split virus, quadrivalent, PF 0 completed BERNBAE Moreno, [facility] 03/28/2024 10:17:07 Influenza, split virus, quadrivalent, PF 9 completed BERNABE Moreno, [facility] 03/28/2024 10:17:07 Past Encounters Encounter ID Performer Location Encounter Start Date Encounter Closed Date Diagnosis/Indication Diagnosis SNOMED-CT Code Diagnosis ICD10 Code Diagnosis Note [id number] EDELMIRA Brewer [facility] [address] [place] [address] 11/01/2023 16:39:42 11/03/2023 09:24:51 Nausea and vomiting 02588948 R11.2 Rx for famotidine 40mg daily and zofran 4mg ODT as directed Upper abdominal pain 831 23215 R10.10 check u/s gallbladde r. Mixed anxi ety and depressive disorder 632482346 F41.8 increase venlafaxin e ER to 75mg daily. [id number] EDELMIRA Brewer [facility] [address] [place] [address] 11/25/2023 15:04:50 11/30/2023 19:54:56 Attention deficit hyperactivity disorder 998661092 F90.9 pt requires a refill on guanfacine ER 2mg qhs that was started and managed by previous PCP. Renewal of prescription 156842196 Z76.0 pt also has nephrology following and on chronic potassium supplement ation for hypokalemi a. 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 Hypokalemia 70745396 E87 .6 pt is taking maintenanc e potassium citrate supplement daily for potassium management . This was ordered by Dr. Grant Bradley [id number] EDELMIRA Brewer [facility] [place] [address] [place] [address] [place] [address] 03/13/2024 12:03:40 03/13/2024 12:48:50 Adult health examination 063196401 Z00.01 Annual wellness exam complete Mixed anxi ety and depressive disorder 951260853 F41.8 Patient is stable on venlafaxin e ER to 75mg daily. Her mental health is doing much better than just 4 months ago. She has no complaints or concerns. Insomnia 884913856 G47.0 0 Patient is taking guanfacine ER 2 mg p.o. q.h.s. and is stable Long-term drug therapy 223785418 Z79.899 Routine CBC and CMP are due Cholesterol screening 27 5255506 Z13.220 Fasting lipid panel due Diabetes m nimaitus screening 057038018 Z13.1 A1c ordered for diabetes risk assessment Thyroid di sorder screening 432742530 Z13.29 Routine thyroid labs ordered Body mass index 30+ - obesity 811801496 Z68.33 BMI is 33.6. Screening fasting insulin lab is due Gastroesop hageal reflux disease without esophagitis 367913232 K21.9 Patient is stable on omeprazole 20 mg and she is taking 2 tablets as needed at night Obesity 483184094 E66.8 [id number] BERNABE Moreno (Adult Med) [address] [place] [address] 03/20/2024 10:53:40 03/20/2024 12:03:58 Tuberculosis screening 899882582 Z11.1 [id number] BERNABE Moreno (Adult Med) [address] [place] [address] 03/28/2024 09:41:50 03/28/2024 10:31:33 Tuberculosis screening 900279460 Z11.1 [id number] EDELMIRA Brewer [facility] [place] [address] [place] [address] 08/01/2024 13:51:29 08/01/2024 15:05:33 Viral gastroenteritis [id number] A08.4 Supportive care, brat diet, hydration focus. Avoid dairy products for 72 hours Nausea and vomiting 1692 [id number] R11.2 Rx for famotidine 40mg daily and zofran 4mg ODT as directed Abdominal pain [id number] R10.9 Related to 1. Viral gastroente ritis. Diarrhea [id number] R19.7 No dairy for 72 hours and brat diet Health Concerns Section Related Observation LastModified by Organization Detai ls LastModified Time None Recorded Concern Status LastModified by Organization Details LastModified Time None Recorded Advance Directives Directive None Recorded Payers Encounter Date Sequence Insurance Name Policy Number Policy Seals Covered Member ID Seals Member ID Guarantor Name 11/25/2023 1 [employer] [place] ON [place] AFTER 2020 (MEDICAID REPLACEMENT - [facility]) Radha Mesnier [id number] Radha Mesnier 03/13/2024 1 [employer] [place] RE[place]ACEMENT - [facility]) Radha Mesnier [id number] Radha Mesnier 03/20/2024 1 [employer] [place] RE[place]ACEMENT - [facility]) Radha Mesnier [id number] Radha Mesnier 03/28/2024 1 [employer] [place] ([place] RE[place]ACEMENT - [facility]) Radha Mesnier [id number] Radha Mesnier 08/01/2024 1 [employer] [place]ACEMENT - [facility]) Radha Mesnier [id number] Radha Mesnier Notes Date Note Type Note Provider Name and Address Organization Details Recorded Time text/html VomitingReported bypatient.Quality:worsening Severity:severe Duration:weeks Onset/Timing:acute; 4-10 times a day Context:no one else with similar symptoms; no possible food sources; no recent travel; no well water; non-smoker; no drug/alcohol abuse; no drug alcohol withdrawal Alleviating Factors:nothing gives relief Aggravating Factors:eating Associated Symptoms:no fever; no chills; no frequent coughing; no sore throat;weight loss;decreased appetite;nausea;diarrheaNot es:x 3 weeks of vomiting. doesn't matter what she eats, she vomits it all up, occurs 15-30 minutes later. Pt was diagnosed at [facility] hospital with adult rumination syndrome. This resolves around ingested food. She is in need of referral to psychiatrist. [facility] did not have any psych see her while admitted. she continues with vomiting multiple times per day. she also needs some refills on medications. EDELMIRA Brewer Attn: [address]ing[address] [place], [address], [facility] 11/29/2023 21:47:23 4 text/html Anxiety/DepressionReported bypatient.Notes:Patient is doing well on venlafaxine ER 75 mg daily. She is feeling much better than she was in the spring as far as her anxiety and depression is concerned.InsomniaReported bypatient.Notes:Patient does take guanfacine ER 2 mg p.o. q.h.s. which helps her with her sleep EDELMIRA Brewer Attn: [address]ing[address] [facility], [place], [address], [facility] 04/03/2024 14:42:29 4 text/html Abdominal PainReported bypatient.Location:LLQ; LUQ; RLQ; RUQ; radiating; epigastric; periumbilical; suprapubic; migration Quality:pain;aching;dull;fu llness;tender Severity:moderate Duration:intermittent Onset/Timing:wax/wane Context:food Modifying Factors:nothing gives relief Associated Symptoms:no heartburn; no shortness of breath;fever;chills;nausea; vomiting;diarrhea Other:denies possible pregnancyNauseaReported bypatient.Notes:Patient had acute exacerbation of nausea and vomiting that started 72 hours after she transported her roommate to the emergency room for similar symptoms.VomitingReported bypatient.Notes:Patient was back in the ER again today due to nausea and vomiting and also diarrhea EDELMIRA Brewer Attn: Accounting[address] [facility], [place], [address], [facility] 08/06/2024 00:24:50 OBGyn Episode No OBEpisode recorded.
--- OUTSIDE RECORDS SUMMARY | 2024-12-01 09:58 | XMS_ITS | Clinical Summary ---
Author Organization [facility] Address [address] [place] [address] Care Team Providers Care Costume Rental Clerk Name Role Phone Tricia Benitez MD Primary Care Provider Source Comments [facility],non-owned Affiliates and Associated Physician Practices is amultiple site organization consisting of ambulatory clinics and hospital sitesin [place], [place], [place] and [place]. This disclosure is being madepursuant to the Care Everywhere program and may not contain all information available regarding this patient. Last updated 18.[facility] Allergies No known active allergies Medications * Be aware that medications may not be up to date on this document. Alwaysverify current medications with the patient. Medication Sig Dispensed Refills Start Date End Date Status MICROGESTIN 1-20 MG-MCG tablet Take 1 tablet by mouth once daily 06/04/2019 Active melatonin 3 MG tablet Take 3 mg by mouth at bedtime Active sertraline (ZOLOFT) 100 MG tablet Take 125 mg by mouth at bedtime 08/04/2021 Active acetaminophen (TYLENOL) 500 MG tablet Take 2 (two) tablets by mouth every 8 hours Maximum allowable Acetaminophen amount = 4 Grams (4000 mg) / 24 hours. 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 Assessment & Plan (02/15/2022 10:33 AM CDT): ASSESSMENT: doing well PLAN: 1. Questions solicited and answered. 2. Continue with existing conservative treatment program. 3. Medications Prescribed: none 4. Activity Restrictions: none 5. Weightbearing status: She may return to non contact sports at 3 months, contact at 6 months. 6. Follow up: in 6 month(s) with X-rays Assessment & Plan (01/18/2022 11:30 AM CDT): PLAN: 1. Questions solicited and answered. 2. Dressing instructions discussed. Steri strips placed on small open part. Keep placing steris as long as small opening is present. Patient will send pictures of wound through [employer]. 3. Medications Prescribed: none 4. Activity Restrictions: no PE, no team sports and no collision sports 5. Weightbearing status: No Restrictions 6. Follow up: in 4 week(s) with X-rays Assessment & Plan (01/13/2022 11:18 AM CDT): ASSESSMENT: serous drainage. PLAN: new prevena dressing. Assessment & Plan (12/21/2021 6:04 PM CDT): PLAN: SURGICAL DISCUSSION she is accompanied by her mother. Our preoperative discussion began with a definition of kyphosis. We discussed her previous treatments which included observation and physical therapy. Radha currently has a curve that measures 88 degrees if increased thoracic kyphosis with wedging from T9-12: The types of kyphosis are: Congenital kyphosis is present at when the spine does not form fully correctly before . The kyphosis may worsen as the child grows. If there is significant progression and imbalance, surgery may be indicated. Postural kyphosis is due to poor posture. It is more common in girls. It often shows up in teens. If not self-corrected by s tanding up straight, it can get to a point where physical therapy or bracing is needed to correct it. It does not usually lead to other problems later in life. Surgery is usually not indicated. Scheuermann s kyphosis occurs when the spinal bones grow in an abnormal, wedged fashion. This type tends to run in families. It often appears in the teen years. It can continue to get worse as the child grows. Treatments can include physical therapy, medication, bracing and/or surgery. Surgery is indicated when surgery is greater than 80 degrees with failure of non-operative care. Other causes are post-radiation for a tumor, post-traumatic and post-procedure (secondary to another spinal surgery) We discussed the type of kyphosis Radha has is scheurmann's. We discussed the natural history of scheurmann's. Surgery is recommended for people with curves usually greater than 80 degrees and/or who are at high risk of continued worsening even after they are finished growing. Curves that grow very large may cause pain, limit certain body functions and cause difficulty or discomfort in breathing. It is known that curves of this magnitude continue to progress at a rate of progression even after skeletal maturity. We usually recommend doing it when the patients are younger because the healing potential is better and the risks of major complications are lower. They were given the treatment alternatives. These alternatives include observation, physical therapy and bracing. The outcomes of each have been discussed. There procedure I have recommended is a posterior spinal fusion with segmental instrumentation and allograft bone graft. We also recommend posterior column osteotomies and discussed the possibility of performing more extensive surgery including a 3 column osteotomy if necessary. We discussed the procedure in depth. We discussed the risk of the procedure, which includes bleeding, infection, neurovascular injury, failure of procedure, failure of hardware, nonunion, paralysis, nerve root injury, pneumothorax, superior mesenteric artery syndrome, deep venous thrombosis, bowel and bladder dysfunction, prolonged hospital stay and . We discussed that with kyphosis surgery the risk of neurologic injury is greater than with other spine deformity surgery. Radha would be in the operating room anywhere from 4-8 hours, blood loss would be around 500-700 cc, but she may require a transfusion. The risks of transfusion were discussed. The expected post operative course was discussed. she will most likely be admitted to the transitional care unit. Radha will be placed into the rapid discharge protocol as long as there are no complications. After surgery, Radha will be able to begin a clear diet, she will be placed on a SAND DRIER, and have a mcgee catheter and arterial line in place. On the morning of postoperative day number one, Radha's diet will be advanced to as tolerated and she will be sat up in a chair to eat breakfast. In the afternoom, she will receive physical therapy. They will initiate standing and walking. The SAND DRIER will be discontinued and oral medication will be started. Once Radha passed PT, is able to eat, and is off all IV pain medication and on oral medication, they will be allowed to be discharged to home. The expected hospital stay will be between 2-3 days. We discussed if a complication should occur, we would be taken care of appropriately, and that she would not be discharged until she was stable enough for discharged. We discussed her postoperatively she will not be in a brace. The first follow up is in 2 weeks via telemedicine, mychart, or e-mail with a picture of the incision to confirm it is healed and has no signs of infection and then in 3 months for a repeat xray. Radha will be allowed to return swimming in a pool at 2 weeks and lakes, streams, or oceans in 3 weeks, to school in 3-6 weeks, to contact sports in 6 months. PRE OP NEEDS AND INSTRUCTIONS Prior to surgery clearance needed: None Prior to surgery preoperative studies needed: none Preop bowel prep: Radha was instructed to start MiraLAX 1 week prior to surgery and to take one Dulcolax 2 days prior to surgery. Preop cleaning: Radha was instructed to shower the night before surgery with Hibiclens, if they are not allergic. SURGICAL PLAN History of seizure: no Neuromonitoring: Yes SSEP: Yes MEP: Yes EMG: Yes Implants: K2M Fusion levels: T3-L3 with posterior column osteotomies Graft: locallocal autograft and allograft (Allosource) Synthetic bone graft or BMP WILL NOT BE UTILIZED Kb West MD, spent greater than 30 minutes with Radha and her family and reviewing the images and other studies. I spent and greater than 50% of the time was spent on counseling the family about the diagnosis and treatment plan. Assessment & Plan (10/02/2021 1:39 PM APPLICATOR SPRAYER): ASSESSMENT: increased pain with activities PLAN: 1. Questions solicited and answered. 2. Discussed both operative and non-operative treatements. Due to the amount of persistent pain she is having daily, the family is considering operative treatement. 3. Medications Prescribed: Mobic 4. Activity Restrictions: none 5. Weightbearing status: No Restrictions 6. Follow up: preop Assessment & Plan (04/18/2020 11:11 AM CDT): PLAN: 1. Questions solicited and answered. Patient/family voiced understanding to info/instructions given. 2. The diagnosis and findings were explained to the patient, questions answered. 3. Continue home exercises. 4. Bracing: No 5. Medications Prescribed: none 6. Activity Restrictions: none 7. Follow up: in 2 year(s). 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 Vitamin D deficiency 12/15/2012 Overview (12/15/2012): Component Name 12/13/12 1559 [id number] 17.08* Start cholecalciferol 1000 units daily. Resolved Problems Problem Noted Date Diagnosed Date Resolved Date Elevated blood pressure 12/13/201207/06 Overview (12/15/2012): Systolic at 95%ile. Repeat with PMD visit this summer. If still elevated, has +snoring history and will need sleep study to rule out CARLOS. Immunizations Name Administration Dates Next Due [employer] primary monoval ent 12+ yr 0.3mL Purple cap 09/21/2021,01/12/2021,12/22/2020 INFLUENZA VACCINE, QUADR. (F LUZONE; FLULAVAL; FLUARIX; AFLURIA QUADRIVALENT; 6MO+), 0.5 ML (IIV4) 01/09/2022,07/15/2015 Family History Medical History Relation Name Comments Diabetes Maternal Grandfather Anemia Maternal Grandmother Cancer Maternal Grandmother Diabetes Maternal Grandmother Hypertension Maternal Grandmother Lung Cancer Maternal Uncle None Known half-brother Relation Name Status Comments Maternal Grandfather Maternal Grandmother Maternal Uncle half-brother Alive Social History Tobacco Use Types Packs/Day Years Used Date Smoking Tobacco: Passive Smo ke Exposure - Never Smoker Smokeless Tobacco: Never Comments:stepdad smokes outs yecenia Alcohol Use Standard Drinks/Week Comments No 0 (1 standard drink = 0.6 oz pur e alcohol) Sex and Gender Information Value Date Recorded Sex Assigned at Not on file Gender Identity Not on file Sexual Orientation Not on file Last Filed Vital Signs Vital Sign Reading Time Taken Comments Blood Pressure 114/65 06/10/2022 11:45 AM CDT Pulse 68 06/10/2022 11:45 AM CDT Temperature 37.2 C (98.9 F) 06/10/2022 11:45 AM CDT Respiratory Rate 20 06/10/2022 11:4 5 AM CDT Oxygen Saturation 100% 06/10/2022 11: 45 AM CDT Inhaled Oxygen Concentration 100% 01/05/2022 2 :45 PM CDT Weight 110.4 kg (243 lb 6.2 oz) 022 11:45 AM CDT Height 179.5 cm (5' 10.67 ) 06/10/2022 11:45 AM CDT Body Mass Index 34.26 06/10/2022 11:45 AM CDT Plan of Treatment Health Maintenance Due Date Last Done Comments HIV SCREENING 2019 HPV VACCINE (1 - 3-dose series) 2019 CHLAMYDIA/GONORRHEA SCREENING 2020 MENINGOCOCCAL (Group B) VACCINE SHARED DECISION-MAKING (1 of 2 - Standard) 2020 HEPATITIS C SCREENING 07/07/2022 DTAP/TDAP/TD VACCINES (1 - Tdap) 2023 HEPATITIS B VACCINE (1 of 3 - 19+ 3-dose series) 2023 COVID-19 VACCINE ( season) 2024 09/21/2021, 09/21/2021, 01/12/2021, Additional history exists INFLUENZA VACCINE (#1) 2024 2, 08/05/2020, 08/08/2019, Additional history exists DEPRESSION SCREENING 09/05/2024 ZOSTER VACCINE (1 of 2) 2054 HIB VACCINE Aged Out No longer eligi ble based on patient's age to complete this topic MENINGOCOCCAL GROUPS A/C/Y/W VACCINE Aged Out No longer eligible based on patient's age to complete this topic PNEUMOCOCCAL VACCINE Aged Out No long er eligible based on patient's age to complete this topic Medical Devices Implanted Type Area Wheat Grower Device Identifier Shelf Expiration Date Model / Serial / Lot Graft Bone Canc 4-9.5mm 90ml Chp Frzdr Implanted:Qty: 1 on 01/05/2022 by Kb Cárdenas MD at [facility] N/A: Spine Allosource 09/21/2025 [id number] / / [id number] Scrw Poly Fulton 5.5mm X 40mm Implanted:Qty: 6 on 01/05/2022 by Kb Cárdenas MD at [facility] N/A: Spine [employer] [id number] / / Scrw Poly Fulton Uni 5.5mm X 40mm Implanted:Qty: 4 on 01/05/2022 by Kb Cárdenas MD at [facility] N/A: Spine [employer] [id number] / / Screw 5.5mm 35mm Fndtn Spne Fulton Ti Implanted:Qty: 2 on 01/05/2022 by Kb Cárdenas MD at [facility] N/A: Spine Guz[employer] Spine [id number] / / Scrw Fulton 6.5 X 45mm Gold Implanted:Qty: 4 on 01/05/2022 by Kb Cárdenas MD at [facility] N/A: Spine [employer] [id number] / / Scrw Fulton 6.5 X 50mm Magenta Implanted:Qty: 4 on 01/05/2022 by Kb Cárdenas MD at [facility] N/A: Spine [employer] [id number] / / Screw 6.5mm 50mm Fndtn Spne Fulton Ti Implanted:Qty: 2 on 01/05/2022 by Kb Cárdenas MD at [facility] N/A: Spine Frannie Spine [id number] / / Screw 5.5mm 495mm Str Rail Spne Fulton Implanted:Qty: 2 on 01/05/2022 by Kb Cárednas MD at [facility] N/A: Spine Guz[employer] Spine [id number] / / Advance Directives * Full Code (Latest Code Status on File) Date Activated Date Inactivated Comments 01/05/2022 2:24 PM 01/09/2022 2:35 PM Care Teams Costume Rental Clerk Relationship Specialty Start Date End Date Tricia Benitez MD [facility] [place] [place] [address] PCP - General 09/30/09
[2024-12-01 09:59] VITALS: BP 130/70; PULSE 71; RESP 15; TEMP 36.7; O2SAT 100
--- OUTSIDE RECORDS SUMMARY | 2024-12-01 11:14 | XMS_ITS | Clinical Summary ---
Author Organization [facility] Address [address] [place] [address] Phone Care Team Providers Care Trolley Cleaner Name Role Phone Tricia Tim MD Primary [...] [place] Care Teams Trolley Cleaner Relationship Specialty Start Date End Date Tricia Tim MD [address] [place] [id number] PCP - General Pediatrics 02/27/20
--- OUTSIDE RECORDS SUMMARY | 2024-12-01 11:14 | XMS_ITS | Encounter Summary ---
Author Organization [facility] Healthcare Address [address] [place] [address] Care Team Providers Care Dye Machine Tender Name Role Phone Tricai Young Primary Care Pr ovider Bronwyn Valdez RN Unavailable [phone] Encounter Details Date Type Department Care Team (Late st Contact Info) Description 11/18/2023 Documentation Internal Medicine True Best MD [address] [place] [address] Social History Tobacco Use Types Packs/Day Years Used Date Smoking Tobacco: Never Passive Smoke Exposure: Never Smokeless Tobacco: Never [facility] Utilities Answer Date Recorded In the past 12 months has [employer], gas, oil, or water [email or web address] threatened to shut off services in your home? No 11/18/2023 Social Connection and Isolat ion Panel [NHANES] Answer Date Recorded In a typical week, how many times do you talk on the phone with family, friends, or neighbors? More than three times a week 11/18/2023 How often do you get togethe r with friends or relatives? More than three times a week 11/18/2023 How often do you attend [facility] or scientology services? Never 11/18/2023 Do you belong to any clubs o r organizations such as mosque groups, unions, fraternal or athletic groups, or school groups? No 11/18/2023 How often do you attend meet ings of the clubs or organizations you belong to? More than 4 times per year 11/18/2023 Are you , , di vorced, , never , or living with a partner? Never 11/18/2023 Overall Financial Resource Strain (CARDIA) Answe r Date Recorded How hard is it for you to pa y for the very basics like food, housing, medical care, and heating? Not hard at all 11/18/2023 Hunger Vital Sign Answer Date Recorded Within the past 12 months, y ou worried that your food would run out before you got the money to buy more. Never true 11/18/19 24 Within the past 12 months, t he food you bought just didn't last and you didn't have money to get more. Never true 11/18/2023 PRAPARE - Transportation Answer Date Re corded In the past 12 months, has l ack of transportation kept you from medical appointments or from getting medications? No 11/03 In the past 12 months, has l ack of transportation kept you from meetings, work, or from getting things needed for daily living? No 11/18/2023 Housing Stability Vital Sign Answer Shravan e Recorded In the last 12 months, was t here a time when you were not able to pay the mortgage or rent on time? No 11/18/2023 In the last 12 months, how many places have you lived? 1 11/18/2023 In the last 12 months, was t here a time when you did not have a steady place to sleep or slept in a senior living (including now)? No 11/18/2023 Personal Safety Answer Date Recorded Have you ever been in or are you currently in a harmful physical or emotional relationship or is someone making you feel afraid or unsafe? 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 difficile 11/12/2023 11/12/2023 Rhino/Enterovirus 11/13/2023 11/13/2023 11/20/2023 3:06 AM CDT documented as of this encounter Care Teams Dye Machine Tender Relationship Specialty Start Date End Date Tricia Young PA PCP - General Physician Mechanics Handyman 11/14/23 Bronwyn Valdez, RN [address] [address] [facility] Outpatient Trading Assistant 11/17/23 12/12/23 documented as of this encounter
--- OUTSIDE RECORDS SUMMARY | 2024-12-01 11:14 | XMS_ITS | Clinical Summary ---
Author Organization [facility] StatSocial Address [address] [place] [address] Care Team Providers Care Tangled Yarn Spool Straightener Name Role Phone Tricia Benitez MD Primary Care Provider Source Comments [facility],non-owned Affiliates and Associated Physician Practices is amultiple site organization consisting of ambulatory clinics and hospital sitesin [place], [place], [place] and [place]. This disclosure is being madepursuant to the Care Everywhere program and may not contain all information available regarding this patient. Last updated 18.[facility] [employer] Allergies No known active allergies Medications * [...] Patient will send pictures of wound through [employer]. 3. Medications Prescribed: none 4. Activity Restrictions: [...] diet, she will be placed on a RIGGER THIRD, and have a mcgee catheter and arterial line in place. On the morning of postoperative day number one, Radha's diet will be advanced to as tolerated and she will be sat up in a chair to eat breakfast. In the afternoom, she will receive physical therapy. They will initiate standing and walking. The RIGGER THIRD will be discontinued and oral medication will [...] plan. Assessment & Plan (10/02/2021 1:39 PM ACTUARIAL MANAGER): ASSESSMENT: increased pain with activities PLAN: 1. [...] 12/15/2012 Overview (12/15/2012): Component Name 12/13/12 1559 [id number] 17.08* Start cholecalciferol 1000 units daily. Resolved Problems Problem Noted Date Diagnosed Date Resolved Date Elevated blood pressure 12/13/201207/06 Overview (12/15/2012): Systolic at 95%ile. Repeat with PMD visit this summer. If still elevated, has +snoring history and will need sleep study to rule out CARLOS. Immunizations Name Administration Dates Next Due [employer] primary monoval ent 12+ yr 0.3mL Purple [...] this topic Medical Devices Implanted Type Area Cloth Spreader Screen Printing Device Identifier Shelf Expiration Date Model / Serial / Lot Graft Bone Canc 4-9.5mm 90ml Chp Frzdr Implanted:Qty: 1 on 01/05/2022 by Kb Cárdenas MD at [facility] N/A: Spine [employer] 09/21/2025 [id number] / / [id number] Scrw Poly Fulton 5.5mm X 40mm Implanted:Qty: 6 on 01/05/2022 by Kb Cárdenas MD at [facility] N/A: Spine [employer] [id number] / / Scrw Poly Fulton Uni 5.5mm X 40mm Implanted:Qty: 4 on 01/05/2022 by Kb Cárdenas MD at [facility] N/A: Spine [employer] [id number] / / Screw 5.5mm 35mm Fndtn Spne Fulton Ti Implanted:Qty: 2 on 01/05/2022 by Kb Cárdenas MD at [facility] N/A: Spine Guz[employer]ine [id number] / / Scrw Fulton 6.5 X 45mm Gold Implanted:Qty: 4 on 01/05/2022 by Kb Cárdenas MD at [facility] N/A: Spine [employer] [id number] / / Scrw Fulton 6.5 X 50mm Magenta Implanted:Qty: 4 on 01/05/2022 by Kb Cárdenas MD at [facility] N/A: Spine [employer] [id number] / / Screw 6.5mm 50mm Fndtn Spne Fulton Ti Implanted:Qty: 2 on 01/05/2022 by Kb Cárdenas MD at [facility] N/A: Spine [employer]ine [id number] / / Screw 5.5mm 495mm Str Rail Spne Fulton Implanted:Qty: 2 on 01/05/2022 by Kb Cárdenas MD at [facility] N/A: Spine [employer] [id number] / / Advance Directives * Full Code (Latest Code Status on File) Date Activated Date Inactivated Comments 01/05/2022 2:24 PM 01/09/2022 2:35 PM Care Teams Tangled Yarn Spool Straightener Relationship Specialty Start Date End Date Tricia Benitez MD [facility] [place] [address] PCP - General 09/30/09
--- OUTSIDE RECORDS SUMMARY | 2024-12-01 11:15 | XMS_ITS | Clinical Summary ---
Author Organization [facility] ospital Address [address] [place] [address] Care Team Providers Care Steam Table Attendant Name Role Phone Tricia Young Primary Care Pr ovider Allergies Active Allergy Reactions Criticality Noted Date Comments Haloperidol Agitation Low 11/14/2023 Medications polyethylene glycol (MIRALAX) 17 gram packet Take 17 g by mouth daily as needed for constipation Active norethindrone ac-eth estradioL (MICROGESTIN 09/24) 1-20 mg-mcg per tablet Take 1 tablet by mouth daily 9 Active guanFACINE ER (INTUNIV) 2 mg tablet extended release 24 hr Take 1 tablet (2 mg total) by mouth nightly Active potassium citrate ER (UROCIT-K) 10 mEq (1,080 mg) CR tablet Take 2 tablets (20 mEq total) by mouth 2 (two) times a day Active venlafaxine XR (EFFEXOR-XR) 75 mg 24 hr capsule Take 1 capsule (75 mg total) by mouth daily 4 Active prochlorperazin e (COMPAZINE) 5 mg tablet Take 1 tablet (5 mg total) by mouth every 6 (six) hours as needed for nausea or vomiting 20 tablet 4 Active omeprazole (PriLOSEC) 20 mg capsule Take 2 capsules (40 mg total) by mouth nightly 60 capsule Active Active Problems Problem Noted Date Diagnosed Date Severe malnutrition 11/14/2023 Intractable vomiting with nausea 11/13/2023 Assessment & Plan (11/15/2023 9:37 PM CDT): Presenting symptom that now seems to be resolved. Will discharge in the a.m. Clostridium difficile infection 11/13/2023 Assessment & Plan (11/16/2023 11:27 AM CDT): C diff positive , reports diarrhea on and off for about 4 weeks, works in hospital Rx fidaxomacin for 10 days through 11/21 Will discharge on final doses Upper respiratory infection 11/13/2023 Assessment & Plan (11/16/2023 11:27 AM CDT): Complained of dry cough on 11/12, RVP + for rhinovirus/ enterovirus Resolved Intractable vomiting 11/11/2023 Assessment & Plan (11/16/2023 11:25 AM CDT): 11/15: Responded well to treatment and no further n/v. Ate entire breakfast today. Stomach, biopsy from EGD - Oxyntic mucosa with edema, congestion, and fresh intramucosal hemorrhage - No H. pylori organisms are identified by H&E examination 11/14 Tolerated EGD without difficulty. 11/13 EGD: esophagitis at the GEJ with no bleeding. Localized moderate inflammation characterized by erythema found in the gastric body. Biopsies taken with a cold forceps for histology. Rx pantoprazole 40 mg q daily GI senior staff consultant noted Patient's symptoms began after a significant psychosocial stressor when she and her boyfriend broke up. 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 Present for 4 weeks with associated weight loss of ~20 lbs and upper abdominal pain. Symptoms started after 2 stressful events. Denies drugs, marijuana use. CT AP w/ concerns for gastritis/duodenitis. MBS at OSH - mild esophageal reverse peristalsis. Labs HIV nonreactive, TSH normal . Possible rumination sy, H. Pylori infection, peptic ulcer disease, infectious gastroenteritis - c .diff. +,Rx fidaxomicin -cw PPI - h pylori neg - cw iv fluids due to poor po intake - Diet as tolerated - EGD on 11/13 esophagitis, gastritis, fw biopsy Urine tox + benzo barbiturates ? KRISTEN (acute kidney injury) 11/11/2023 Assessment & Plan (11/16/2023 11:26 AM CDT): Mild KRISTEN that resolved Likely baseline creatinine around 0.5-0.6. P/w Cr 0.93. Likely pre-renal. S/p 1L IVF. UA w/ SG 1.030, 1+ pro, 1+ ket, 1+ bili, 3+ blood w/ 6-10 WBC, and >50 RBCs (though patient is currently on her period). 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 Likely related to emesis. CT w/o concern for pancreatic or liver disease, lipase normal - Hepatitis A,B, and C negative Will need to follow-up with PCP Migraine without aura 03/31/2020 Anxiety disorder 03/31/2020 Assessment & Plan (11/16/2023 11:25 AM CDT): No evidence of significant anxiety while in the hospital. Continue effexor Also on guanfacine at home for ADHD, continued in the hospital Chronic constipation 09/09/2016 Obesity 09/09/2016 Assessment & Plan (11/16/2023 11:27 AM CDT): Counseled regarding importance of exercise program Bladder dysfunction 02/28/2015 Surgical History Surgery Date Site/Laterality Comments BACK SURGERY 01/03/2022 - 02/02/2022 Medical History Medical History Date Comments Neuromuscular dysfunction of bladder Anxiety disorder Kyphosis Family History Medical History Relation Name Comments No Known Problems Father Diabetes Maternal Grandfather Hepatitis Maternal Grandfather Kidney disease Maternal Grandfather Liver disease Maternal Grandfather Diabetes Maternal Grandmother Heart attack Maternal Grandmother Stroke Maternal Grandmother Diabetes Mother Headache Mother Nephrolithiasis Mother Urinary tract infection Mother Relation Name Status Comments Father Alive Maternal Grandfather Maternal Grandmother Mother Alive Social History Tobacco Use Types Packs/Day Years Used Date Smoking Tobacco: Never Passive Smoke Exposure: Never Smokeless Tobacco: Never Tobacco Cessation:Counseling Given: No [facility] Utilities Answer Date Recorded In the past 12 months has th e electric, gas, oil, or water company threatened to shut off services in your [...] week 11/18/2023 How often do you attend chur ch or druze services? 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 and delivery were unremarkable. Sats would drop when anything was done to her i.e. bathing. Obstetrics History Last Filed Vital Signs Vital Sign Reading Time Taken Comments Blood Pressure 113/67 11/16/2023 9:40 AM CDT Pulse 87 11/16/2023 9:40 AM CDT Temperature 36.7 C (98.1 F) 11/16/2023 9:40 AM CDT Respiratory Rate 17 11/16/2023 9:40 AM CDT Oxygen Saturation 98% 11/16/2023 9:40 AM CDT Inhaled Oxygen Concentration - - Weight 114.4 kg (252 lb 1.6 oz) 024 10:40 PM PHOTOGRAPHER APPRENTICE Height 180.3 cm (5' 11 ) 11/14/2023 10: 42 AM CDT Body Mass Index 35.16 11/11/2023 10:40 PM PHOTOGRAPHER APPRENTICE Plan of Treatment Health Maintenance Due Date Last Done Comments Depression Screening 2004 Meningococcal B Vaccine (1 of 2 - Standard) 2020 Regular Well Visit/Exam 18-64 2022 Influenza Vaccine (#1) 2024 2, 08/08/2019, 06/12/2018, Additional history exists DTaP/Tdap/Td Vaccine (8 - Td or Tdap) 04/18/2027 04/18/2017, 12/17/2015, 09/19/2009, Additional history exists Hepatitis B Screening Completed 05/07/2005 , 05/07/2005, 2004, Additional history exists Pneumococcal vaccine <65 Completed 005, 01/20/2005, 2004, Additional history exists Varicella Vaccines Completed 09/19/2009, 10/04/2005 HPV Vaccines Completed 04/18/2017, 06/07, 02/18/2016, Additional history exists Meningococcal Vaccine Aged Out 04/18/2017, 016 No longer eligible based on patient's age to complete this topic Hepatitis C Screening Completed 11/13/2023, 024 Procedures Procedure Name Priority Date/Time Associated Diagnosis Comments HEPATITIS PANEL, ACUTE Routine 11/13/2023 8:46 PM CDT from Last 3 Months or Most Recently Relevant to Health Maintenance Results * Hepatitis panel, acute Blood (11/13/2023 8:46 PM CDT) Hep A IgM Nonreactive Nonreactive Hep B core IgM Nonreactive Nonreactive [facility] Hep C Ab Nonreactive Nonreactive [facility] Comment:Antibodies to HCV no t detected. Does NOT exclude the possibility of recent exposure to HCV. Current interpretive data was last revised on 22 HepBsAg Nonreactive Nonreactive [facility] Blood 11/13/2023 8:46 PM CDT 11/13/2023 9:24 PM CDT us Marcela Goldberg MD LAB MICROBIOLOGY - GEN ERAL ORDERABLES Final Result [facility] Department [place] [address] from Last 3 Months or Most Recently Relevant to Health Maintenance Additional Health Concerns Infection Onset Date Last Indicated C. difficile 11/12/2023 11/12/2023 Insurance [employer] [facility] Advance Directives For more information, please contact: [phone] * Full Code (Latest Code Status on File) Date Activated Date Inactivated Comments 11/11/2023 10:55 PM 11/16/2023 5:31 PM Care Teams Steam Table Attendant Relationship Specialty Start Date End Date Tricia Young PA PCP - General Physician Health Safety Specialist 11/14/23
--- OUTSIDE RECORDS SUMMARY | 2024-12-01 11:15 | XMS_ITS | Referral Summary ---
Author Organization [facility] ospital Address [address] [place] [address] Care Team Providers Care Sales And Training Specialist Name Role Phone Tricia Young Primary Care [...] Rx pantoprazole 40 mg q daily GI reimbursement consultant noted Patient's symptoms began after a [...] importance of exercise program Bladder dysfunction 02/28/2015 Social History Tobacco Use Types Packs/Day Years Used Date Smoking Tobacco: Never Passive Smoke Exposure: Never Smokeless Tobacco: Never Tobacco Cessation:Counseling Given: No [facility] Utilities Answer Date Recorded In the past [...] often do you attend chur ch or gnosticist services? Never 11/18/2023 Do you belong to any clubs o r organizations such as jehovah's witness groups, unions, fraternal or athletic groups, or [...] place to sleep or slept in a alf (including now)? No 11/18/2023 Personal Safety Answer Date Recorded Have you ever been in or are you currently in a harmful physical or emotional relationship or is someone making you feel afraid or unsafe? 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 EDITOR Gender Identity Not on file Sexual Orientation [...] (252 lb 1.6 oz) 024 10:40 PM FEATURES EDITOR Height 180.3 cm (5' 11 ) 11/14/2023 10: 42 AM CDT Body Mass Index 35.16 11/11/2023 10:40 PM FEATURES EDITOR Plan of Treatment Not on file Procedures Procedure Name Priority Date/Time Associated Diagnosis Comments HEPATITIS PANEL, ACUTE Routine 11/13/2023 8:46 PM CDT from Last 3 Months or Most Recently Relevant to Health Maintenance Results * Hepatitis panel, acute Blood (11/13/2023 8:46 PM CDT) Hep A IgM Nonreactive Nonreactive Hep B core IgM Nonreactive Nonreactive [facility] Hep C Ab Nonreactive Nonreactive [facility] Comment:Antibodies to HCV no t detected. Does NOT exclude the possibility of recent exposure to HCV. Current interpretive data was last revised on 22 HepBsAg Nonreactive Nonreactive [facility] Blood 11/13/2023 8:46 PM CDT 11/13/2023 9:24 PM CDT us Marcela Goldberg MD LAB MICROBIOLOGY - GEN ERAL ORDERABLES Final Result [facility] Department [place] [address] from Last 3 Months or Most Recently Relevant to Health Maintenance Additional Health Concerns Infection Onset Date Last Indicated C. difficile 11/12/2023 11/12/2023 Insurance [employer] [facility] [place] [address] [employer] [facility] [address] [id number] Advance Directives For more information, please contact: [phone] * Full Code (Latest Code Status on File) Date Activated Date Inactivated Comments 11/11/2023 10:55 PM 11/16/2023 5:31 PM Care Teams Sales And Training Specialist Relationship Specialty Start Date End Date Tricia Young PA PCP - General Physician Director Credit Risk 11/14/23
--- NOTE | 2024-12-01 11:23 | ED.NAVMDI ---
HPI - Nausea/Vomiting/Diarrhea General Chief complaint: Nausea/Vomiting/Diarrhea Stated complaint: n/v, shaking Time Seen by Provider: 12/01/24 11:06 History of Present Illness HPI Narrative: 19-year-old female with a history of nausea vomiting attributed to rumination syndrome while she was at [facility]. She presents to the emergency room with nausea vomiting headache, subjective fever and chills. Patient states this feels different than her rumination syndrome. She has sick contacts she does work as a tech in the hospital. No known home without any similar symptoms, no new diet changes or anxiety provoking stressors at home. She was otherwise in her normal state of health. Symptoms going on for less than 1 day time. Has Zofran at home which has not been working. Mom states that she eats food and then several hours later she has vomiting which is different than her previous episodes of nausea vomiting which is almost immediately after eating or drinking. Related Data Home Medications ?Medication ?Instructions ?Recorded ?Confirmed ?Last Taken ?Type melatonin 1 mg chewable tablet mg PO 06/11/21 Unknown History norethindrone 1 mg-ethinyl tablet 06/11/21 Unknown History estradiol 20 mcg (21)-iron 75 mg (7) tablet (Sammie Fe 09/24 (28)) potassium citrate 10 mEq (1,080 meq PO 06/11/21 Unknown History mg) tablet,extended release sertraline 50 mg tablet mg 06/11/21 Unknown History Allergies Allergy/AdvReac Type Severity Reaction Status Date / Time haloperidol (From Haldol) AdvReac Jittery Verified 12/01/24 09:59 Review of Systems Review of Systems: As reviewed above in HPI PMFSH Past Medical History Medical History Anxiety Cystinuria Kyphosis Renal stone Depression Sleeping difficulty Family History Family History Other No acute medical problems Social History Social History Smoking status: Never smoker Other substance usage details: Denies marijuana use Living arrangements: with family Occupation/Education: student Additional occupation/education comments: in nursing school Exam Narrative: GENERAL: [Well-appearing, well-nourished, and in no acute distress.] HEAD: [Normocephalic, atraumatic.] EYES: [PERRLA and EOMI.] ENT: Nares clear, no rhinorrhea or epistaxis. Mucous membranes moist. NECK: Supple. CHEST: [Clear to auscultation. No respiratory distress.] HEART: [Regular rate and rhythm]. No murmur heard. [Normal peripheral pulses.] ABDOMEN: [Soft, nondistended], [nontender], [No rigidity or guarding] EXTREMITIES: Normal range of motion. [No edema.] SKIN: Warm, dry, no rash. NEURO: [No focal deficits]. Alert and oriented [x3.] PSYCH: [Normal mood and affect.] Course Vital Signs Vital signs: Vital Signs Temperature 36.7 C 12/01/24 09:59 Pulse Rate 71 12/01/24 09:59 Respiratory Rate 15 12/01/24 09:59 Blood Pressure 130/70 12/01/24 09:59 Pulse Oximetry 100 12/01/24 09:59 Temperature 37.0 C 12/01/24 13:29 Pulse Rate 65 12/01/24 13:29 Respiratory Rate 18 12/01/24 13:29 Blood Pressure 129/79 12/01/24 13:29 Pulse Oximetry 100 12/01/24 13:29 MDM - Nausea/Vomiting/Diarrhea MDM Narrative Medical decision making narrative: 19-year-old female presenting with nausea, vomiting, dizziness, headache. 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 She has had nausea vomiting many times before resulting electrolyte deficiencies and admissions to hospitals. She has been in her normal state of health recently, no new anxiety provoking stressors, mom thinks this could be psychosomatic. Patient otherwise appears well, ambulatory and swelling in the emergency department. No nausea vomiting during my examination. Normal vital signs with any fever, tachycardia, hypoxia, blood pressure elevations. Soft nontender nondistended abdomen. Likely symptoms could be explained by gastritis, gastroenteritis, COVID, flu, exacerbation of her previous rumination syndrome/psychosomatic in nature. Low suspicion for intra-abdominal process such as appendicitis, pancreatitis, cholecystitis. Basic laboratory studies were obtained including a CBC, CMP, lipase, urinalysis, phosphorus level. Magnesium level. She was given Compazine, diphenhydramine, fluid bolus and re-evaluated. test ordered. Patient's workup was largely unremarkable. She has no leukocytosis or anemia. Normal platelet count. Electrolytes all within normal limits, normal renal function, normal glucose and hepatic function. Normal magnesium normal phosphorus. Normal lipase. Normal TSH. Urinalysis with some blood and 100 red blood cells, no signs of urinary tract infection. CT scan was ordered this time for further delineation to see if there is any kidney stone or other intra-abdominal process causing her symptoms. test negative. CT scan shows no urolithiasis, no dilated loops of bowel, normal appendix, no lymph node enlargement. No acute process in the abdomen or pelvis. Patient is hemodynamically stable with an unremarkable workup. She can be safely discharged home at this time with antiemetic therapy as needed. She will follow-up with regular doctor. Medical Records Attestation: I reviewed the patient's medical records. Lab Data Attestation: I reviewed the patient's lab results. 12/01/24 11:25 12/01/24 11:25 Labs: Lab Results 12/01/24 12/01/24 12/01/24 Range/Units 11:25 11:25 11:33 WBC 7.1 (4.5-10.0) K/mm3 RBC 4.41 (4.2-5.4) M/mm3 Hgb 13.3 (12.0-15.0) g/dL Hct 40.0 (37.0-47.0) % MCV 90.7 (80-100) fl MCH 30.2 (26-34) pg MCHC 33.3 (32-36) g/dl RDW 12.6 (11.5-14.5) % Plt Count 235 (150-375) k/mm3 MPV 10.2 (7.4-10.4) fl Immature Gran % (Auto) 0.3 (0-0.5) % Neut % (Auto) 54.3 (45.5-73.1) % Lymph % (Auto) 34.4 (18.3-44.2) % [place] % (Auto) 9.8 H (2.6-8.5) % Eos % (Auto) 0.6 (0-4.4) % Baso % (Auto) 0.6 (0.2-1.2) % Lymph # (Auto) 2.43 (0.9-3.2) K/mm3 [place] # (Auto) 0.7 H (0.1-0.6) K/mm3 Eos # (Auto) 0.0 (0-0.3) K/mm3 Baso # (Auto) 0.0 (0.0-0.1) K/mm3 Abs Immat Gran (auto) 0.02 (0.00-0.031) K/mm3 Absolute Neuts (auto) 3.9 (1.3-6.7) K/mm3 Absolute Nucleated RBC 0.000 (0.0-0.012) K/mm3 Nucleated RBC % 0.0 (0.0-0.2) % Sodium 140 (137-145) mmol/L Potassium 4.4 (3.4-5.0) mmol/L Chloride 104 (98-107) mmol/L Carbon Dioxide 25 (22-30) mmol/L Anion Gap 11 (4-12) mmol/L BUN 14 (7-17) mg/dL Creatinine 0.77 (0.7-1.0) mg/dL Estim Creat Clear Calc 136 ml/min Estimated GFR > 60 (59 - ) Glucose 94 (65-110) mg/dL Calcium 10.3 H (8.4-10.2) mg/dL Phosphorus 4.5 Cancelled (2.5-4.5) mg/dL Magnesium 1.9 (1.6-2.3) mg/dL Total Bilirubin 0.5 (0.2-1.3) mg/dL AST 27 (14-36) U/L ALT 25 (6-35) U/L Alkaline Phosphatase 48 (38-126) U/L Total Protein 8.0 (6.3-8.2) g/dL Albumin 4.9 (3.5-5.1) g/dL Lipase 66 (23-300) U/L TSH (Reflex) 0.481 (0.465-4.68) uIU/mL Urine Color Yellow (Yellow) Urine Appearance Clear (Clear) Urine pH 6.5 (5.0-9.0) Ur Specific [place] 1.011 (1.001-1.035) Urine Protein Negative (Negative) mg/dL Urine Glucose (UA) Negative (Negative) mg/dL Urine Ketones Negative (Negative) mg/dL Ur Blood (Man) 3+ H (Negative) Urine Nitrate Negative (Negative) Urine Bilirubin Negative (Negative) Urine Urobilinogen 0.2 (<2.0) mg/dL Leukocyte Esterase Rfl Negative (Negative) DECLAN/UL Urine RBC >100 H (0-2) /hpf Urine WBC 0-5 (0-3) /hpf Ur Squamous Epith Cells None seen (Few) /hpf Urine Bacteria None seen /hpf Urine Casts 0-2 POC Urine HCG, Qual Negative (Negative) Influenza A (RT-PCR) Negative (Negative) Influenza B (RT-PCR) Negative (Negative) RSV (RT-PCR) Negative (Negative) SARS-CoV-2 RNA (RT-PCR) Negative (Negative) Imaging Data Attestation: I personally reviewed and interpreted this imaging study as follows: My impression: Impressions Abdomen/Pelvis CT 12/01/24 12:20 IMPRESSION: 1. No urolithiasis. 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 Normal electrolytes, no derangements. Normal kidney and liver tests. Normal thyroid test. CT scan shows no findings in your abdomen or pelvis. No kidney stones, no appendix inflammation, no acute infection. We can send you home with some antiemetic therapy different than Zofran to try and see if that helps her symptoms. Have your regular doctor follow-up with you and provide further recommendations. Return to the ER if you experience any emergencies. Patient Language: [place] Prescriptions: New metoclopramide HCl [Reglan] 5 mg tablet 5 mg PO Q8H PRN (Reason: nausea and vomiting) Qty: 10 0RF No Action norethindrone-e.estradiol-iron [Sammie Fe 09/24 (28)] 1 mg-20 mcg (21)/75 mg (7) tablet potassium citrate 10 mEq (1,080 mg) tablet extended release PO sertraline 50 mg tablet melatonin 1 mg Tablet,Chewable PO ibuprofen 800 mg tablet 800 mg PO TID PRN (Reason: pain) Qty: 20 0RF amoxicillin-pot clavulanate 875-125 mg tablet 1 tablet PO Q12H 7 Days Qty: 14 0RF sulfamethoxazole-trimethoprim [Bactrim DS] 800-160 mg tablet 1 tablet PO Q12H Qty: 10 0RF famotidine 20 mg tablet 20 mg PO DAILY Qty: 20 0RF ondansetron 4 mg tablet,disintegrating 4 mg PO Q8H PRN (Reason: nausea and vomiting) Qty: 7 0RF ondansetron 4 mg tablet,disintegrating 4 mg PO Q8H PRN (Reason: nausea and vomiting) Qty: 30 0RF cephalexin 500 mg capsule 500 mg PO Q12H Qty: 10 0RF Follow-up/Referrals: Hannah,JIMENA Clarke [Primary Care Provider] - Time of Disposition: 14:09
[2024-12-01 11:32] LABS: Basophils Percent Auto 0.6 % (0.2-1.2); Eosinophils Percent Auto 0.6 % (0-4.4); Hemoglobin 13.3 g/dL (12.0-15.0); Immature Granulocyte Absolute 0.02 K/mm3 (0.00-0.031); Immature Granulocyte Percent A 0.3 % (0-0.5); Lymphocytes Absolute Auto 2.43 K/mm3 (0.9-3.2); Lymphocytes Percent Auto 34.4 % (18.3-44.2); Mean Corpuscular HGB Conc 33.3 g/dl (32-36); Mean Corpuscular Hemoglobin 30.2 pg (26-34); Mean Corpuscular Volume 90.7 fl (80-100); Mean Platelet Volume 10.2 fl (7.4-10.4); Monocytes Absolute Auto 0.7 K/mm3 (0.1-0.6); Monocytes Percent Auto 9.8 % (2.6-8.5); Neutrophils Absolute Auto 3.9 K/mm3 (1.3-6.7); Neutrophils Percent Auto 54.3 % (45.5-73.1); Platelet Count Result 235 k/mm3 (150-375); Red Blood Count 4.41 M/mm3 (4.2-5.4); Red Cell Distribution Width 12.6 % (11.5-14.5); White Blood Count 7.1 K/mm3 (4.5-10.0)
[2024-12-01] MEDS: PROCHLORPERAZINE EDISYLATE 10 MG/2 ML VIAL IV PUSH (11:33)
[2024-12-01] MEDS: SODIUM CHLORIDE 0.9% IV 1,000 ML 999 ML IV CONT (11:33)
[2024-12-01] MEDS: diphenhydrAMINE HCl INJ 50 MG/ML VIAL 25 MG IV PUSH (11:34)
[2024-12-01 11:35] LABS: BEDSIDEPREGUCG Negative (Negative)
[2024-12-01 11:37] LABS: Add Urine Microscopic? YES; Appearance Urine Clear (Clear); Bacteria Urine None Seen /hpf; Bilirubin Urine Negative (Negative); Blood Urine 3+ (Negative); Color Urine Yellow (Yellow); Glucose Urine UA Negative (Negative); Ketones Urine Negative (Negative); Leukocyte Esterase Ur Negative LEU/UL (Negative); Nitrate Urine Negative (Negative); Non Pathogenic Casts 0-2; Protein Urine Negative (Negative); RBC Urine >100 /hpf (0-2); Specific Grav Ur 1.011 (1.001-1.035); Squamous Epithelial Cell Urine None Seen /hpf (Few); Urobilinogen Urine 0.2 mg/dL (<2.0); WBC Urine 0-5 /hpf (0-3); pH Urine 6.5 (5.0-9.0)
[2024-12-01 11:51] LABS: Alanine Aminotransferase 25 U/L (6-35); Albumin Level 4.9 g/dL (3.5-5.1); Alkaline Phosphatase 48 U/L (38-126); Anion Gap 11 mmol/L (4-12); Aspartate Amino Transferase 27 U/L (14-36); Bilirubin,Total 0.5 mg/dL (0.2-1.3); Blood Urea Nitrogen 14 mg/dL (7-17); Calcium 10.3 mg/dL (8.4-10.2); Carbon Dioxide 25 mmol/L (22-30); Chloride 104 mmol/L (98-107); Estimated CRCL calculation 136 ml/min; Estimated Glomerular Filt Rate > 60; Glucose 94 mg/dL (65-110); Lipase 66 U/L (23-300); Phosphorus 4.5 mg/dL (2.5-4.5); Potassium 4.4 mmol/L (3.4-5.0); Sodium 140 mmol/L (137-145)
[2024-12-01 12:10] LABS: Influenza A QL RT-PCR Negative (Negative); Influenza B QL RT-PCR Negative (Negative); RSV RNA, RT-PCR Negative (Negative); SARS-CoV-2 RNA PCR Negative (Negative)
[2024-12-01 12:12] LABS: Magnesium 1.9 mg/dL (1.6-2.3)
[2024-12-01 12:33] LABS: Thyroid Stimulating Hormone Reflex 0.481 uIU/mL (0.465-4.68)
[2024-12-01 13:29] VITALS: BP 129/79; PULSE 65; RESP 18; TEMP 37; O2SAT 100
== END 2024-12-01 14:24 | disposition home or self-care (01) ==
PROVIDERS: Emergency Provider Student in an Organized Health Care Education/Training Program; PCP Physician Assistant
DX: R11.2 Nausea with vomiting, unspecified (principal); F01-F99 Mental, behavioral and neurodevelopmental disorders; Z68.32 Body mass index [BMI] 32.0-32.9, adult; Z20.822 Contact with and (suspected) exposure to COVID-19; F32.A Depression, unspecified; F41.9 Anxiety disorder, unspecified; Z87.442 Personal history of urinary calculi; Z79.899 Other long term (current) drug therapy; Z79.3 Long term (current) use of hormonal contraceptives
CPT/HCPCS: 36415; 74176; 80053; 81001; 81025; 83690; 83735; 84100; 84443; 85025; 87637; 96361; 96374; 96375; 99284; J0780; J1200; J7030